=== PATIENT | female | born 1960 | race Caucasian/White ===

== ENCOUNTER 2022-02-16 05:39 | Inpatient (IN) ==
--- NOTE | 2022-02-09 09:24 | Anesthesiology Consultation ---
Date of Service February 09, 2022 Assessment & Plan (1) Encounter for pre-operative examination: Plan - check BMP and EKG STAT am DOS. - cardiology office appt 09/29/21 [facility]: "...2008 patient underwent surgery for diverticulitis. Post surgery, patient developed chest pain, ST elevation was noted on ECG and an echocardiogram was abnormal with WMA abnormalities c/w Takotsubo. Cardiac catheterization confirmed the diagnosis as an angiography revealed normal coronary arteries...treated with ASA, metoprolol and statin...history of abkspixakwacum-Tznwalulv-ulnnwkms...not experiencing symptoms suggestive of a cardiac etiology...possible her sleep apnea, maybe hypoxic state at night coupled with her obesity is some of the driving force behind the edema. Advised for following a low sodium diet..." - sleep apnea, hypoxemia: per PAT anchorman call, pt in process of being Rx PAP and supplemental oxygen and per booking sheet will be staying overnight. Dr. Bruno aware, advised pt bring CPAP to hospital, otherwise will treat with hospital device at reported 4 cm with 1 L supplemental oxygen per [facility] sleep medicine report. Provider order: CPAP SETTINGS: Pressure: 4 cm H2O Smart Flex/C-Flex: 2 Delay/Ramp: 20 minutes Heated Humidifier(E0562) INTERFACE per patient comfort: Small Air Fit N30 OXYGEN SUPPLEMENT: 1 LPM - COVID screening: Per exchange trouble shooter on 02/04/2022: Travel screen negative, no known COVID-19 positive contacts or current COVID-19 related symptoms in past 2 weeks. Pt vaccinated. To surgeon's discretion if preop COVID testing needed. Chart Review Chart Review: Acceptable Risk for Surgery and Patient NOT seen in Pre Admission Testing History Surgery Operation Date: 02/16/22 07:30 Proposed Procedures p Revision of Intrathecal Catheter and Possible Replacement or Revision of Intrathecal Pain Pump - Luis F Alcantar MD, FIPP Height/Weight Height: 5 ft 3 in Weight: 88.451 kg Allergies Allergy/AdvReac Type Severity Reaction Status Date / Time latex Allergy Unknown HIVES Verified 01/19/22 09:56 meperidine [From Demerol] AdvReac Unknown Nausea Verified 02/04/22 12:28 Medications Home Medications Medication Instructions Recorded Confirmed Last Taken calcium polycarbophil 625 mg 1,250 mg PO BID 01/14/20 02/04/22 Unknown tablet (FiberCon) lorazepam 1 mg tablet (Ativan) 1 mg PO DAILY PRN Anxiety 01/14/20 02/04/22 Unknown methylphenidate HCl 20 mg 20 mg PO QAM 01/14/20 02/04/22 Unknown tablet,extended release (Metadate ER) metoprolol succinate 25 mg 25 mg PO QAM 01/14/20 02/04/22 Unknown tablet,extended release 24 hr (Toprol XL) venlafaxine 150 mg 150 mg PO QAM 01/14/20 02/04/22 Unknown capsule,extended release 24 hr (Effexor XR) bupropion HCl 150 mg 24 hr tablet, 150 mg PO QAM 04/28/20 02/04/22 Unknown extended release methylphenidate HCl 5 mg tablet 5 mg PO UD 04/28/20 02/04/22 Unknown naloxone 4 mg/actuation nasal 4 mg intranasal Q2M PRN opioid 10/06/20 02/04/22 Unknown spray (Narcan) overdose #2 ea armodafinil 250 mg tablet (Nuvigil) 250 mg PO QAM 01/19/22 02/04/22 Unknown albuterol sulfate 90 mcg/actuation 90 mcg inhalation QID PRN 02/04/22 02/04/22 Unknown aerosol inhaler Shortness Of Breath Or Wheezing calcium 100 mg capsule 100 mg PO QAM 02/04/22 02/04/22 Unknown Past Medical History Medical History (Updated 02/09/22 @ 09:28 by Leah Jade PA-C) Anxiety Asthma uses occasionally, sometimes depends on weather Chronic radicular lumbar pain Complex sleep apnea syndrome per [facility] records Cytomegaloviral disease hx 1990 Depression Diverticulitis Left knee pain Low O2 saturation happens at night, in process of following up and to be ordered o2 at some point for use at night Lumbar post-laminectomy syndrome Nausea and vomiting after administration of anesthetic agent Presence of intrathecal pump Presence of neurostimulator Takotsubo cardiomyopathy resolved per [facility] cardiology 09/29/21 Past Family History Family History Father Diabetes Colon cancer Past Surgical History Surgical History History of colon resection due to ruptured diverticulitis - 2009 History of lumbar fusion Hx of appendectomy Hx of cardiac cath 2009 after bowel procedure, complications with low heart rate after procedure no stents placed, no blockage found Hx of laminectomy x2 S/P colonoscopy Social History Smoking Status: Former smoker Do You Dip or Chew Tobacco: No Smoking End Date: quit 1994 Hx Alcohol Use: No Hx Substance Use: No substance use type: does not use Testing Laboratory Results 02/05/2022 WBC: 8 H/H: 13/41 PLATELETS: 224 UA: clear, yellow, small leukocyte esterase, moderate blood, no bacteria Echocardiogram Date: 11/03/20 EF 65-69% Normal LV wall motion Grade II diastolic dysfunction Mildly enlarged LA Pulmonary artery systolic pressure 26 mmHg No evidence of pulmonary hypertension No significant valvular pathology
--- NOTE | 2022-02-15 16:10 | History & Physical Report ---
Date of Service February 15, 2022 Assessment & Plan (1) Lumbar post-laminectomy syndrome: (2) Presence of intrathecal pump: (3) Chronic radicular lumbar pain: (4) Anxiety: (5) Depression: Plan 1. Due to suspected intrathecal malfunction due to an inability to aspirate from the catheter access port it has been recommended that the patient undergo exploration and likely revision/replacement of her intrathecal catheter as she continues to have inadequate pain control with her current intrathecal opiate therapy at fairly significant dosing. The side effects and risks of the procedure versus benefits were discussed at length and she verbalized understanding. We will likely be unable to replace her intrathecal pump as she has a current CAROLIN of 42 months. Should catheter abnormality be identified will likely need to reduce her intrathecal dose. Concentrations were adjusted for intrathecal pump refill at the time of her procedure if needed. 2. Patient will follow-up in 1 week and 2 weeks after the procedure in the pain clinic for wound evaluation. These appointments will need to be scheduled. History of Present Illness Chief Complaint: Lumbar postlaminectomy syndrome with inadequate pain control, intrathecal catheter malfunction Primary Care Provider: Serge Frazier Mrs. Tucker is a 61-year-old white female who is well-known to the [facility] pain service with a history of chronic intractable low back pain secondary to lumbar postlaminectomy syndrome which has required implantation of intrathecal pump and catheter delivery system. The patient has been utilizing intrathecal opiate therapy for many years but complaining of inadequate pain control over the past 6-12 months. Patient describes her pain as aching, occasionally sharp with spasming and numbness, with tingling and shooting pains in the lower extremities in nondermatomal patterns. Her predominant pain generator remains right greater than left lumbosacral pain and gluteal region pain extending to the right lateral hip and thigh region. Patient rates her pain a 4/10 at its best and 9/10 at its worst. She reports more good days than bad days with regards to pain control. She reports limited ability to perform ambulatory and ADL activities due to her pain and discomfort. Patient has undergone extensive evaluation of her intrathecal pump with catheter access port study with inability to aspirate so catheter dye study was not completed. CT scan of the thoracolumbar spine was then completed which failed to reveal evidence of a definitive fracture of the catheter. Treatment options have been discussed at length and ultimately decided to explore her catheter for suspected malfunction of the catheter contributing to her poor pain control. Plan of care discussed with Dr. Alcantar. Allergies Allergy/AdvReac Type Severity Reaction Status Date / Time latex Allergy Unknown HIVES Verified 01/19/22 09:56 meperidine [From Demerol] AdvReac Unknown Nausea Verified 02/04/22 12:28 Home Medications Medication Instructions Recorded Confirmed Type calcium polycarbophil 625 mg 1,250 mg PO BID 01/14/20 02/04/22 History tablet (FiberCon) lorazepam 1 mg tablet (Ativan) 1 mg PO DAILY PRN Anxiety 01/14/20 02/04/22 History methylphenidate HCl 20 mg 20 mg PO QAM 01/14/20 02/04/22 History tablet,extended release (Metadate ER) metoprolol succinate 25 mg 25 mg PO QAM 01/14/20 02/04/22 History tablet,extended release 24 hr (Toprol XL) venlafaxine 150 mg 150 mg PO QAM 01/14/20 02/04/22 History capsule,extended release 24 hr (Effexor XR) bupropion HCl 150 mg 24 hr tablet, 150 mg PO QAM 04/28/20 02/04/22 History extended release methylphenidate HCl 5 mg tablet 5 mg PO UD 04/28/20 02/04/22 History naloxone 4 mg/actuation nasal 4 mg intranasal Q2M PRN opioid 10/06/20 02/04/22 Rx spray (Narcan) overdose #2 ea armodafinil 250 mg tablet (Nuvigil) 250 mg PO QAM 01/19/22 02/04/22 History albuterol sulfate 90 mcg/actuation 90 mcg inhalation QID PRN 02/04/22 02/04/22 History aerosol inhaler Shortness Of Breath Or Wheezing calcium 100 mg capsule 100 mg PO QAM 02/04/22 02/04/22 History Past Med/Surg History Medical History (Updated 02/09/22 @ 09:28 by Leah Jade PA-C) Anxiety Asthma uses occasionally, sometimes depends on weather Chronic radicular lumbar pain Complex sleep apnea syndrome per [facility] records Cytomegaloviral disease hx 1990 Depression Diverticulitis Left knee pain Low O2 saturation happens at night, in process of following up and to be ordered o2 at some point for use at night Lumbar post-laminectomy syndrome Nausea and vomiting after administration of anesthetic agent Presence of intrathecal pump Presence of neurostimulator Takotsubo cardiomyopathy resolved per [facility] cardiology 09/29/21 Surgical History History of colon resection due to ruptured diverticulitis - 2008 History of lumbar fusion Hx of appendectomy Hx of cardiac cath 2008 after bowel procedure, complications with low heart rate after procedure no stents placed, no blockage found Hx of laminectomy x2 S/P colonoscopy Family History Father Diabetes Colon cancer Social History Smoking Status: Former smoker Second Hand Exposure: No; Hx Alcohol Use: No Hx Substance Use: No Preferred Language: Thai Communication Ability: Effective Visual Impairment: No Limitations Hearing Ability: Normal Lumber Material Handler Required: No Beliefs That Will Affect Care: None marital status: Current Living Situation: Alone current occupational status: unemployed current occupation: fosters dogs Feels Safe at Home: Yes Assistive Devices: Glasses Review of Systems Review of Systems: Constitutional: Negative for fever, chills, sweats Eyes: Negative for eye pain, photophobia, drainage Ear, nose, mouth, throat: Negative for ear pain, nasal congestion, mouth lesions, change in voice Respiratory: Negative for wheezing, sputum production Cardiovascular: Negative for chest pain, palpitations, calf pain Gastrointestinal: Negative for abdominal pain, belching, bloating Genitourinary: Negative for dysuria, urinary incontinence, urinary urgency Musculoskeletal: Negative for deformities Integumentary: Negative for nail changes, skin yellowing, pruritus Neurological: Negative for abnormal speech, seizure type activity Physical Exam Physical Exam: General: Patient sitting quietly in exam room in no acute distress. Speech and thought process appropriate. Mood and affect appropriate. Cognition intact. Patient overweight and physically deconditioned. Head: Normocephalic and atraumatic. ENT: No evidence of nasal or oral mucosal lesions. Mucous membranes are moist. Eyes: Pupils equal round reactive to light. Neck: Supple without adenopathy and full range of motion. Cardiac: Regular rate and rhythm without murmur. Lungs: Clear to auscultation no wheeze or rhonchi. Abdomen: Soft and nondistended. No organomegaly. Bowel sounds active. Pump present in the left lower quadrant without evidence of edema, erythema or skin breakdown. Incisional site is well approximated. 2 sites of tattooing related to her intrathecal pump. Back/spine: Complete loss of lumbar lordosis with multiple well-healed midline surgical incisions. Patient has generalized tenderness over the entire lumbosacral region which is nonfocal. Lower extremities: SLR negative bilaterally. Strength testing 5/5 and equal. Sensation intact without deficit. Neurologic: Cranial nerves grossly intact. Ambulatory function widened and guarded.
[2022-02-16] MEDS ORDERED: ceFAZolin 2000MG 2,000 MG/15 ML SYR IV SCH (06:00)
[2022-02-16] MEDS ORDERED: LR 15ML/HR IV SCH (06:00)
[2022-02-16] MEDS ORDERED: MORPHINE IT SCH (06:30)
[2022-02-16] MEDS ORDERED: [UNRECOGNIZED DRUG - OTHER] IT SCH (06:30)
[2022-02-16] MEDS ORDERED: BUPIVACAINE IT SCH (06:30)
[2022-02-16] MEDS ORDERED: LIDOCAINE 2% 2 ML VIAL/AMP(20MG/ML) INFIL ONE (07:01)
[2022-02-16] MEDS ORDERED: fentaNYL citrate 100 MCG/2 ML VIAL ONE ×2 (07:01→10:08)
[2022-02-16] MEDS ORDERED: PROPOFOL IV EMULSION 10 MG/ML 20 ML VIAL IV ONE (07:01)
[2022-02-16] MEDS ORDERED: MIDAZOLAM HCL 1 MG/ML 2ML VIAL ONE (07:01)
[2022-02-16] MEDS ORDERED: KETOROLAC 30 MG/ML VIAL IV PRN (07:03)
[2022-02-16] MEDS ORDERED: ONDANSETRON INJ 2 MG/ML 2 ML VIAL IV PRN (07:03)
[2022-02-16] MEDS ORDERED: ATROPINE SULFATE 0.1 MG/ML 10ML SYR IV PRN (07:03)
[2022-02-16] MEDS ORDERED: fentaNYL citrate 100 MCG/2 ML VIAL IV PRN (07:03)
[2022-02-16] MEDS ORDERED: ALBUTEROL 0.083% NEBU SOLN 3 ML VIAL INH PRN (07:03)
--- NOTE | 2022-02-16 07:03 | History & Physical Bridge Note ---
Date of Service February 16, 2022 History & Physical Bridge Note History & Physical Bridge Note Felicitas Tucker is a 61-year-old male/female with a history of chronic pain due to lumbar postlaminectomy syndrome. She has intrathecal medication delivery system implanted for controlling her pain but over the last year has lost the efficacy of the therapy. Further work-up demonstrated malfunctioning catheter. Patient is scheduled today for exploration of intrathecal catheter and pump with possible revision as needed. Patient's past medical history, surgical history, medication and allergy list has been reviewed and no changes noted since his last history and physical examination performed. Review of systems is negative for any cardiac, pulmonary, GI, , endocrine or acute neurological complaints other than what is listed in the HPI section. Physical exam: GENERAL: Patient appears stated age. Speech and cognition is intact. Mood and affect is appropriate. Sensorium is clear. She is in no acute distress. HEAD: Normocephalic; atraumatic. EYES: Pupils are round, equal, and reactive to light. EOM intact. Mucous membranes moist and pink. No oral lesions noted. ENT: No external ear discharge or lesions. No rhinorrhea or epistaxis. No mucosal lesions. NECK: Full ROM. Trachea is midline. No thyromegaly. No cervical lymphadenopathy. Carotids without bruit. CARDIAC: Regular rate and rhythm. No murmur or gallops noted. CHEST: Regular chest respiration and excursion. Lungs are clear to auscultation. ABDOMEN: No organomegaly appreciated. Bowel sounds are normal. Pump LLQ. EXTREMITIES: Full ROM and +5 strength of bilateral lower extremities. Distal sensation and pulses intact bilaterally. BACK: Loss of lumbar lordosis. Decreased ROM. NEURO: Cranial nerves II-XII grossly intact with no focal deficits noted. Deep tendon reflexes in the upper and the lower extremities are symmetrical. Sensation and motor strength testing is unremarkable. SKIN: No lesions, erythema, or rashes noted. ASSESSMENT: 1. Lumbar postlaminectomy syndrome. 2. Malfunctioning intrathecal catheter. RECOMMENDATIONS: Explore, revise and replace intrathecal catheter as needed. History reviewed, examination performed, pertinent laboratory and imaging studies reviewed. No contraindications noted to proceeding with the proposed procedure. Potential risks including infection, bleeding, hematoma, nerve injury, persistent back pain, injury to the spinal cord, dural puncture with pe rsistent cerebrospinal fluid leak, post dural puncture headache which may require additional interventional procedures to treat were discussed with the patient in detail. Alternative treatments were also discussed. Patient's questions were answered and gives informed consent to proceed with the proposed procedure. Consent statement
[2022-02-16] MEDS ORDERED: SCOPOLAMINE 1 MG TDSY TD ONE ×2 (07:04→07:05)
[2022-02-16] MEDS ORDERED: LIDOCAINE 2%/EPINEPHRINE 1:100,000 20ML ONE (07:10)
[2022-02-16 08:00] LABS: BUN Creatinine Ratio 20.5 (10-20); Calcium 9.7 mg/dl (8.5-10.1); Creatinine Clr Calc Pharmacy 75.7 ml/min; Est GFR (African American) 88.8 ml/min; Est GFR (Non-African American) 76.6 ml/min; Potassium 4.2 mmol/L (3.5-5.1)
[2022-02-16] MEDS ORDERED: DEXAMETHASONE SOD INJ 4 MG/ML VIAL ONE (08:26)
[2022-02-16] MEDS ORDERED: ROCURONIUM BROMIDE 10 MG/ML 5 ML VIAL IV ONE (08:26)
[2022-02-16] MEDS ORDERED: ONDANSETRON INJ 2 MG/ML 2 ML VIAL ONE (08:26)
[2022-02-16] MEDS ORDERED: NEOSTIGMINE METHYLSULFATE 1 MG/ML 10ML VIAL ONE (08:48)
[2022-02-16] MEDS ORDERED: GLYCOPYRROLATE 0.2 MG/ML VIAL ONE (08:48)
[2022-02-16] MEDS ORDERED: ePHEDrine sulfate 50 MG/ML SYR ONE (08:48)
[2022-02-16] MEDS ORDERED: SODIUM CHLORIDE 0.9% INJ 10 ML VIAL ONE (09:18)
[2022-02-16] MEDS ORDERED: NALOXONE HCL 0.4 MG/1 ML VIAL/CARP IV PRN (11:19)
[2022-02-16] MEDS ORDERED: NO NARCOTICS OR SEDATIVES SCH (11:30)
--- NOTE | 2022-02-16 11:33 | Operative Report ---
Post Operative Report Pre & Post Diagnosis Operation Date: 02/16/22 07:30 Pre-Op Diagnosis: 1. Lumbar postlaminectomy syndrome. 2. Malfunctioning intrathecal catheter Post-Op Diagnosis: 1. Lumbar postlaminectomy syndrome. 2. Malfunctioning intrathecal catheter I identified the patient and participated in the time-out.: Yes Procedure Operation Date: 02/16/22 07:30 Actual Procedures Exploration of Intrathecal Catheter and Spinal Cord Stimulator leads, Insertion of New Intrathecal Catheter, Reprogram and Refill of Intrathecal Pump - Luis F Alcantar MD, ADY Surgeon Luis F Alcantar MD, ADY Neurological Surgery Teacher Debra Iraheta PA-C Estimated Blood Loss 30 Findings See Below Unable to locate the intrathecal insertion point for the catheter due to artifact from spinal hardware, and multiple spinal cord stimulator leads. Specimens None Drains None Anesthesia Type General Complications none Disposition Disposition: Recovery Room Description of Procedure Exploration of intrathecal catheter and spinal cord similar leads. Insertion of new intrathecal catheter, refill and revision of intrathecal pump. PREOPERATIVE DIAGNOSIS: Nonfunctioning and migrated intrathecal catheter. POSTOPERATIVE DIAGNOSIS: Same. PROCEDURE: 1. Expiration of intrathecal catheter and spinal cord stimulator lead site in the lumbar spine 2. Insertion of new catheter. 3. Postoperative reprogramming of intrathecal drug delivery system pump. INDICATIONS: Malfunctioning intrathecal catheter. COMPLICATIONS: None ANESTHESIA: General. DESCRIPTION OF PROCEDURE: The patient had an existing intrathecal pump with the catheter that had migrated in the epidural space. Patient was not achieving the efficacy from the intrathecal dose of the hydromorphone. Evaluation with imaging catheter dye study revealed disconnection of the catheter and inability to aspirates from the catheter. Therefore, exploration and revision was recommended. Prior to starting, the Patients diagnosis and the procedure were reviewed with the patient in detail. Possible risks and complications including infection, bleeding, damage to surrounding structures and increased pain were d iscussed. Alternative therapies were also reviewed. Patients questions were answered and they agreed to proceed. Informed consent was obtained. Allergies and medication list was reviewed. Biplanar fluoroscopy was used to assist in placement of the needle as well as to evaluate the final needle and catheter positions. The patient was brought to the operating room and general anesthesia was induced by members of the department. Patient was then placed in right lateral decubitus position. Immediately prior to starting the procedure, a ``time out was conducted with the staff where the patient was identified, proposed procedure was verified, consent was reviewed and the proper site for the planned procedure was identified. Preoperative antibiotics for prophylaxis were given through the IV. On examination, no signs of skin breakdown or infection were noted at the injection site. The site was cleansed with DuraPrep followed by Betadine. Sterile drapes were applied in the usual fashion. Incision was made at the previous catheter insertion site. Fluoroscopy was utilized to locate the existing catheter. However, due to artifact from the spinal instrumentation, multiple leads for the existing spinal cord stimulator and poor anatomy, catheter insertion site was unable to located. Incision was made at the approximate insertion site however, and paranoid the catheter could be located. Instead, several centimeters of an insulated exposed spinal cord stimulator was noted. At this point, it was decided to open the pocket in the left lower quadrant the abdomen and disconnected the catheter for the pump. The pump was removed. Remaining medication pump was removed and preserved free saline wash was conducted. Pump was filled with new medication and primed. The sutureless connector disconnected and to free tied using 0 silk were performed over the remaining catheter. Also vascular clip was applied. No fluid was noted to be emergent for the catheter prior to performing this. Next, using biplanar fluoroscopy an 16-gauge Touhy needle was used to gain access to the intrathecal sac at approximate L3/L4 interspace. Free CSF flow was obtained. Intrathecal catheter was threaded uneventfully with the tip positioned at approximate T9 level. Pursestring suture was taken around the catheter insertion site into the dorsal lumbar fascia using 0 silk suture. A nchor device was applied. Free CSF flow from the intrathecal catheter after anchoring of the catheter to the fascia. Wound was then irrigated with Betadine containing normal saline solution. Next, the pump was placed in the pocket after the catheter was brought to the pocket and left lower quadrant site using the tunneling device. Excess catheter was cut and removed and measured. Sutures connecting device were attached to the catheter into the pump. Pocket was irrigated with Betadine containing saline and the pump was placed in the pocket. Hemostasis was achieved. 0 Prolene sutures were used to tack the palm down to the scar tissue in the pocket at the anchor points. Deep layer was closed using 0 V antibiotic-coated Strratfix suture and running 0 Monocryl suture for subcuticular layer. Prineo dressing was applied to the skin. Aquacel dressing was applied to both wounds. Abdominal binder was placed. Pump was then reprogrammed. No complications were noted throughout the procedure. The patient tolerated the procedure and general anesthesia without obvious complications.. Patient was allowed to emerge from anesthesia at the end of the procedure and transferred back to the stretcher. Patient was transported to the recovery room in stable condition. Level of catheter: T9 Catheter trimmed to: 99.6 cm Total catheter volume 0.219 mL Medication placed in pump: Morphine 10 mg/mL concentration and bupivacaine 2.5 mg/mL concentration. Daily dose: 0.5 mg of morphine per day. I attest to the content of the Intraoperative Record and any orders documented therein. Any exceptions are noted below.
--- NOTE | 2022-02-16 11:34 | XRay Report ---
KUB HISTORY: INCORRECT NEEDLE COUNT COMPARISON: Radiographs 10/06/2021. FINDINGS: Fusion hardware of the lower lumbar spine. There are 2 battery pack devices projected over the lower abdomen with partially imaged leads overlying the spine. Study is limited secondary to over lying blanket material. No unexpected opaque foreign bodies identified to suggest a needle device. Mo derate fecal retention. IMPRESSION: No unexpected foreign body identified. ACT 112: Negative or not required by law. The above report was generated using voice recognition software. It may contain grammatical, syntax o r spelling errors. Electronically signed by: Abebe Arriaga M.D. 02/16/2022 11:31 AM
--- NOTE | 2022-02-16 13:07 | Anesthesiology Progress Note ---
Date of Service February 16, 2022 Anesthesia Post Procedure Vital Signs Vital Signs: Temp Pulse Resp BP Pulse Ox O2 Del Method O2 Flow Rate 02/16/22 12:25 37.0 C 91 H 13 108/60 93 Nasal Cannula 3 02/16/22 12:15 94 H 15 113/65 92 Nasal Cannula 3 02/16/22 12:05 98 H 12 126/64 93 Nasal Cannula 3 02/16/22 11:55 100 H 13 126/64 96 Oxymask 4 02/16/22 11:45 100 H 14 118/76 96 Oxymask 4 02/16/22 11:36 36.6 C 111 H 19 117/77 99 Oxymask 8 02/16/22 06:15 36.7 C 88 20 162/77 H 92 Room Air Pain Intensity Lower Back: Pain Intensity: 7 Transfer of Care Handoff Completed per policy Notes Mental Status: alert / awake / arousable and participated in evaluation Patient Amnestic to Procedure: Yes Nausea / Vomiting: adequately controlled Pain: adequately controlled Airway Patency, RR, SpO2: stable & adequate BP & HR: stable & adequate Hydration State: stable & adequate Anesthetic Complications: no major complications apparent and Pt Satisfied with anesthetic care
[2022-02-16] MEDS ORDERED: METHYLPHENIDATE HCL 5 MG TABLET PO SCH (13:16)
[2022-02-16] MEDS ORDERED: ALBUTEROL HFA 8 GM INHALER INH PRN (13:16)
[2022-02-16] MEDS ORDERED: LORazepam 1 MG TAB PO PRN (13:16)
[2022-02-16] MEDS: HYDROCODONE/ACETAMOPHEN 5/325MG TAB PO PRN ×2 (14:42→21:42)
[2022-02-16] MEDS: CHECK SCOPOLAMINE PATCH PLACEMENT SCH ×2 (16:18→23:36)
[2022-02-16] MEDS ORDERED: cefTRIAXone SODIUM 2,000 MG in DEXTROSE 5% 50 ML IV ONE (19:19)
[2022-02-16] MEDS: ONDANSETRON INJ 2 MG/ML 2 ML VIAL IV PRN (19:53)
[2022-02-16] MEDS: CALCIUM POLYCARBOPHIL 625MG TAB PO SCH (20:48)
[2022-02-16] MEDS: DOCUSATE SODIUM 100 MG CAP PO SCH (21:42)
[2022-02-17] MEDS: ONDANSETRON INJ 2 MG/ML 2 ML VIAL IV PRN ×3 (01:15→23:14)
[2022-02-17] MEDS: HYDROCODONE/ACETAMOPHEN 5/325MG TAB PO PRN ×2 (05:17→20:09)
[2022-02-17] MEDS: CALCIUM POLYCARBOPHIL 625MG TAB PO SCH ×2 (07:43→20:10)
[2022-02-17] MEDS: METOPROLOL SUCC 25MG EXT REL TAB PO SCH (07:44)
[2022-02-17] MEDS: DOCUSATE SODIUM 100 MG CAP PO SCH ×2 (07:44→20:11)
[2022-02-17] MEDS: VENLAFAXINE HCL XR 150 MG CAPXR PO SCH (07:44)
[2022-02-17] MEDS: CHECK SCOPOLAMINE PATCH PLACEMENT SCH ×4 (07:49→23:38)
[2022-02-17] MEDS ORDERED: CALCIUM 100 MG PO SCH (09:00)
--- NOTE | 2022-02-17 09:31 | Pain Management Progress Note ---
Date of Service February 17, 2022 Assessment & Plan (1) Lumbar post-laminectomy syndrome: (2) Presence of intrathecal pump: Plan No dosage changes were made to the pump today. Take Hydrocodone 5/325mg if needed for incisional pain. Dressings appear well. She will return to the office next week for a wound check. She is ready to be discharged to home. Admission and Anticipated Discharge Date Admission Date: February 16, 2022 Subjective Mrs. Tucker is status post intrathecal catheter replacement. She states that her chronic low back pain is well controlled currently. She is having incisional pain and taking Hydrocodone with relief. She is drowsy but states that it is her chronic narcolepsy. She denies any fevers, chills, nausea, vomiting. No further complaints. Case discussed with Dr. Ana Paula Bruno Physical Exam Physical Exam: GENERAL: This is a 61 year old female in no acute distress. She is drowsy but arousable and able to have full conversation. HEAD/FACE: Normocephalic and atraumatic. EYES: No drainage or conjunctival injection. ENT: Nose without bleeding or discharge. Oral mucosa moist. RESPIRATORY: Patient with unlabored breathing. No signs of respiratory distress. CHEST/AXILLA: Chest movement symmetrical. No deformities noted. ABDOMEN/GI: Intrathecal pump site in the left lower abdomen is nonmobile and nontender. Aquacel dressing in place. BACK: Moves without difficulty. Incision located in the thoracolumbar region. Aquacel dressing in place. SKIN: [place], warm and dry. No rash noted. MS/EXTREMITY: No swelling, no deformities. Moving extremities appropriately. NEURO: Alert and appears oriented. Speech is fluent. Cranial Nerves are grossly intact. PSYCH: Alert, pleasant, affect is calm
[2022-02-17] MEDS: buPROPion XL 150 MG TABCR PO SCH (09:38)
--- NOTE | 2022-02-17 10:23 | Discharge Summary ---
Date of Service February 17, 2022 Admission HPI Per Admitting Provider Mrs. Tucker is a 61-year-old white female who is well-known to the [facility] pain service with a history of chronic intractable low back pain secondary to lumbar postlaminectomy syndrome which has required implantation of intrathecal pump and catheter delivery system. The patient has been utilizing intrathecal opiate therapy for many years but complaining of inadequate pain control over the past 6-12 months. Patient describes her pain as aching, occasionally sharp with spasming and numbness, with tingling and shooting pains in the lower extremities in nondermatomal patterns. Her predominant pain generator remains right greater than left lumbosacral pain and gluteal region pain extending to the right lateral hip and thigh region. Patient rates her pain a 4/10 at its best and 9/10 at its worst. She reports more good days than bad days with regards to pain control. She reports limited ability to perform ambulatory and ADL activities due to her pain and discomfort. Patient has un dergone extensive evaluation of her intrathecal pump with catheter access port study with inability to aspirate so catheter dye study was not completed. CT scan of the thoracolumbar spine was then completed which failed to reveal evidence of a definitive fracture of the catheter. Treatment options have been discussed at length and ultimately decided to explore her catheter for suspected malfunction of the catheter contributing to her poor pain control. Admission Exam (Per Admitting) Constitutional WD/WN, vitals as above Discharge Data Procedures Performed Operation Date: 02/16/22 07:30 Actual Procedures p Exploration of Intrathecal Catheter and Spinal Cord Stimulator leads, Insertion of New Intrathecal Catheter, Reprogram and Refill of Intrathecal Pump - Luis F Alcantar MD, [facility] Hospital Course (1) Lumbar post-laminectomy syndrome: (2) Presence of intrathecal pump: Plan This is a 61 year old female that is well-known to the [facility] pain service with a history of chronic intractable low back pain secondary to lumbar postlaminectomy syndrome is required implantation of an intrathecal pump and catheter delivery system. She was reporting inadequate pain relief so there was an attempt to aspirate from the intrathecal catheter which was unsuccessful. The intrathecal catheter was found to have malfunctioned so the catheter was tie d off and a new catheter was placed. Postoperatively there is incisional pain but the low back pain is controlled. She is pleased with the current results and ready for discharge.
[2022-02-17] MEDS ORDERED: METOPROLOL TARTRATE 1 MG/ML VIAL IV ONE ×2 (11:02→11:21)
[2022-02-17] MEDS ORDERED: METOPROLOL TARTRATE 1 MG/ML VIAL IV PRN ×2 (11:14→12:01)
[2022-02-17] MEDS ORDERED: ADENOSINE IV SOLN 3 MG/ML 2 ML VIAL IV STA ×2 (11:30)
[2022-02-17] MEDS ORDERED: MAGNESIUM SULFATE / D5W 1 GM/100 ML BAG IV ONE (11:30)
[2022-02-17] MEDS ORDERED: SODIUM CHLORIDE 0.9% 1000ML 1,000 ML IV SCH (11:30)
[2022-02-17] MEDS ORDERED: ADENOSINE IV SOLN 3 MG/ML 2 ML VIAL IV ONE (11:32)
--- NOTE | 2022-02-17 11:33 | Hospitalist Consultation ---
Date of Consultation February 17, 2022 Assessment & Plan (1) SVT (supraventricular tachycardia): Patient has persistent supraventricular tachycardia refractory to bedside maneuvers such as bearing down carotid pressure. Patient on EKG showed rapid rate with inferolateral ST depressions. Patient was given adenosine 6 mg followed by IV push without response and then responded to 12 mg with a pause and then reset to sinus rhythm in the 80s. He was also given magnesium at that time. No time did she have chest pressure or pain but she did have some mild shortness of breath. Initial high-sensitivity troponin is [address] depression depressions had resolved once her rate had returned to normal patient typically sees [facility] cardiology Patient be maintained on her metoprolol succinate however dose may be titrated up if need be (2) Presence of intrathecal pump: Patient underwent exploration of intrathecal catheter and spinal cord stimulator leads insertion of new intrathecal catheter and reprogram refill of intrathecal pump on 02/16/2022 (3) Depression: Continues on venlafaxine (4) Takotsubo cardiomyopathy: Patient follows with [facility] cardiology for previous history of Takotsubo's cardiomyopathy. Patient's most recent echo in 2020 a normal ejection fraction and no wall motion abnormalities Plan Patient be recommended to stay overnight will be absorbed into our services primary and SCDs will be started for DVT prevention. Family was communicate this recommendation History of Present Illness Attending Physician: Luis F Alcantar MD, [facility] History of Present Illness was asked to see the patient for post op tachycardia, rates are 160-170, looks to be svt on monitor was given some iv metoprolol without success, the pt did take her metoprolol prior to admission. upon my arrival she was stable but was in a svt with rates of 70 and mildly tachypneic with no chest pain Allergies Allergy/AdvReac Type Severity Reaction Status Date / Time latex Allergy Unknown HIVES Verified 02/16/22 06:18 meperidine [From Demerol] AdvReac Unknown Nausea Verified 02/16/22 06:18 Home Medications Medication Instructions Recorded Confirmed Type calcium polycarbophil 625 mg 1,250 mg PO BID 01/14/20 02/16/22 History tablet (FiberCon) lorazepam 1 mg tablet (Ativan) 1 mg PO DAILY PRN Anxiety 01/14/20 02/16/22 History methylphenidate HCl 20 mg 20 mg PO QAM 01/14/20 02/16/22 History tablet,extended release (Metadate ER) metoprolol succinate 25 mg 25 mg PO QAM 01/14/20 02/16/22 History tablet,extended release 24 hr (Toprol XL) venlafaxine 150 mg 150 mg PO QAM 01/14/20 02/16/22 History capsule,extended release 24 hr (Effexor XR) bupropion HCl 150 mg 24 hr tablet, 150 mg PO QAM 04/28/20 02/16/22 History extended release methylphenidate HCl 5 mg tablet 5 mg PO UD 04/28/20 02/16/22 History naloxone 4 mg/actuation nasal 4 mg intranasal Q2M PRN opioid 10/06/20 02/16/22 Rx spray (Narcan) overdose #2 ea armodafinil 250 mg tablet (Nuvigil) 250 mg PO QAM 01/19/22 02/16/22 History albuterol sulfate 90 mcg/actuation 90 mcg inhalation QID PRN 02/04/22 02/16/22 History aerosol inhaler Shortness Of Breath Or Wheezing calcium 100 mg capsule 100 mg PO QAM 02/04/22 02/16/22 History hydrocodone 5 mg-acetaminophen 325 1 tab PO Q4H PRN pain #18 tabs 02/17/22 Rx mg tablet Patient History Medical History (Updated 02/17/22 @ 16:08 by Haroon Choi MD) Anxiety Asthma uses occasionally, sometimes depends on weather Chronic radicular lumbar pain Complex sleep apnea syndrome per [facility] records Cytomegaloviral disease hx 1990 Depression Diverticulitis Left knee pain Low O2 saturation happens at night, in process of following up and to be ordered o2 at some point for use at night Lumbar post-laminectomy syndrome Nausea and vomiting after administration of anesthetic agent Presence of intrathecal pump Presence of neurostimulator Takotsubo cardiomyopathy resolved per [facility] cardiology 09/29/21 Surgical History History of colon resection due to ruptured diverticulitis - 2008 History of lumbar fusion Hx of appendectomy Hx of cardiac cath 2008 after bowel procedure, complications with low heart rate after procedure no stents placed, no blockage found Hx of laminectomy x2 S/P colonoscopy Family History Father Diabetes Colon cancer Social History Smoking Status: Never smoker Smoking End Date: quit 1994; Second Hand Exposure: No; Do You Dip or Chew Tobacco: No; Tobacco Cessation Education Requested by Patient: No Hx Alcohol Use: No Hx Substance Use: No Preferred Language: Amharic Communication Ability: Effective Visual Impairment: No Limitations Hearing Ability: Normal Business Analytics Specialist Required: No Beliefs That Will Affect Care: None marital status: Current Living Situation: Alone current occupational status: unemployed current occupation: fosters dogs Other Information That Helps Us Care for You: No Feels Safe at Home: Yes Safety Concerns: Feels Safe At This Time Assistive Devices: None Review of Systems Review of Systems: Mild distress and fatigue no headache, no visual changes no speech or swallowing issues no chest pain, pressure or sensation of palpitations shortness of breath, cough or wheezes no abdominal pain, nausea or vomiting, diarrhea or constipation no dysuria, hematuria or frequency no focal joint pain or swelling no back pain, CVA tenderness or radicular pain no bruising, bleeding or rashes no focal signs of weakness or numbness or altered sensation no complaints of anxiety or depression.. Physical Exam Physical Exam: The patient appeared well nourished and normally developed. Vital signs as documented. Head exam is normocephalic atraumatic Neck is without JVD, thyromegaly, or carotid bruits. Lungs are clear to auscultation, no focal loss of breath sounds Cardiac exam, Rhythm is tachycardic but regular.. No murmurs, rubs or gallops. EKG shows narrow complex tachycardia with inferolateral ST depression Abdominal exam reveals normal bowel sounds, soft non tender, no masses Extremities are nonedematous and both pedal pulses are present Neurologic exam is alert and oriented, no focal loss of strength or sensation Skin is without bruises or rashes Psychologically is without concerns for anxiety or depression.. Results & Data Results & Data ([facility]) Vital Signs (Past 12 Hours) Vital Signs Temp Pulse Pulse Resp BP BP BP 02/17/22 11:13 170 H 122/90 02/17/22 07:26 98.2 F 89 20 149/72 H 02/17/22 03:32 99.0 F 93 H 18 146/74 H 02/17/22 00:07 Pulse Ox O2 Del Method O2 Flow Rate 02/17/22 11:13 02/17/22 07:26 97 Nasal Cannula 2 02/17/22 03:32 93 Nasal Cannula 2.0 02/17/22 00:07 Nasal Cannula 3 PG Care Time/CCT Total # of Minutes Spent Total Time Spent with Patient: Total time spent is greater than 50% in coordination of care (as documented) at patient's floor/unit and/or counseling patient: Coding Level of Care Code 72352 Inpt Consult Level 5 Diagnoses SVT (supraventricular tachycardia) I47.1 Presence of intrathecal pump Z97.8 Depression F32.9 Takotsubo cardiomyopathy I51.81
[2022-02-17] MEDS ORDERED: LORazepam 0.5 MG TAB PO PRN (12:06)
--- NOTE | 2022-02-17 12:30 | Electrocardiogram Report ---
Test Reason : Blood Pressure : / mmHG Vent. Rate : 169 BPM Atrial Rate : 133 BPM P-R Int : 000 ms QRS Dur : 096 ms QT Int : 280 ms P-R-T Axes : 000 -19 178 degrees QTc Int : 469 ms Supraventricular tachycardia Marked ST abnormality, possible inferolateral subendocardial injury Abnormal ECG No previous ECGs available Confirmed by Sae Chan ([id number]) on 02/17/2022 12:29:56 PM Referred By: Luis F Alcantar Confirmed By:Sae Chan
--- NOTE | 2022-02-17 12:33 | Electrocardiogram Report ---
Test Reason : Blood Pressure : / mmHG Vent. Rate : 085 BPM Atrial Rate : 085 BPM P-R Int : 160 ms QRS Dur : 094 ms QT Int : 364 ms P-R-T Axes : 068 -22 046 degrees QTc Int : 433 ms Normal sinus rhythm Normal ECG When compared with ECG of 17-FEB-2022 10:53, (unconfirmed) Vent. rate has decreased BY [address] no longer depressed in Inferior leads ST no longer depressed in Anterolateral leads Confirmed by Sae Chan ([id number]) on 02/17/2022 12:32:41 PM Referred By: Luis F Alcantar Confirmed By:Sae Chan
[2022-02-17 15:33] LABS: BUN Creatinine Ratio 15.7 (10-20); Creatinine Clr Calc Pharmacy 74.9 ml/min; Est GFR (African American) 88.8 ml/min; Est GFR (Non-African American) 76.6 ml/min; Magnesium 2.2 mg/dl (1.7-2.4); Potassium 3.7 mmol/L (3.5-5.1)
[2022-02-17 15:39] LABS: Troponin I High Sensitivity 50.9 pg/ml (0-14)
--- NOTE | 2022-02-17 22:44 | Communication Note ---
Date of Service: February 17, 2022 Informed by patient's nurse that she was having chest pain. At the bedside, patient reported feeling a deep pressure in the inferior substernal area/top of the epigatrum. She also reports feeling mildly nauseous and with "jitters" in her arms and legs. Endorses mild sensation of nausea. Denies any SOB. Denies this ever happening before. No radiation elsewhere. Notes "it could just be my nerves." HR 173/80, HR 68, RR 20, SpO2 94%. General - tired appearing 61yoF who appears restless and mildly anxious on my arrival. Non-toxic. Cardiac - NRRR, +S1/2 w/o m/r/g. Resp - CTAB. Abd - NABS. Nondistended, +TTP in the epigastrum that she says reproduces the pain. No rebound/guarding ECG - No conduction or repolarization abnormalities. Epigastric pain/Chest pain - Primarily suspect GI etiology - dyspepsia - compounded by feelings of panic that she endorses. Ativan given, already was ordered PRN. Will give IV famotidine, Zofran, alongside GI cocktail. IF still no relief, will draw troponin and trial alternative analgesics - nitro, morphine, etc. Plan communicated with RN.
[2022-02-17] MEDS ORDERED: FAMOTIDINE 20 MG in SYRINGE 3 ML IV ONE (23:15)
[2022-02-17] MEDS ORDERED: ALUMINUM/MAGNESIUM SUSP 18 ML, LIDOCAINE VISCOUS 2% SOLN 6 ML, BARCODE IDENTIFIER 1 EACH PO ONE (23:15)
[2022-02-18] MEDS ORDERED: PROMETHAZINE HCL 12.5 MG in SODIUM CHLORIDE 0.9% 50 ML IV ONE (01:00)
[2022-02-18] MEDS ORDERED: MELATONIN 3 MG TAB PO PRN (01:28)
[2022-02-18 07:19] LABS: BUN Creatinine Ratio 22.8 (10-20); Calcium 8.9 mg/dl (8.5-10.1); Creatinine Clr Calc Pharmacy 80.1 ml/min; Est GFR (African American) 94.3 ml/min; Est GFR (Non-African American) 81.4 ml/min; Potassium 3.4 mmol/L (3.5-5.1)
--- NOTE | 2022-02-18 08:03 | Electrocardiogram Report ---
Test Reason : Blood Pressure : / mmHG Vent. Rate : 065 BPM Atrial Rate : 065 BPM P-R Int : 152 ms QRS Dur : 100 ms QT Int : 394 ms P-R-T Axes : 073 -11 062 degrees QTc Int : 409 ms Normal sinus rhythm Normal ECG When compared with ECG of 17-FEB-2022 11:47, No significant change was found Confirmed by Luke Boyd ([id number]) on 02/18/2022 8:02:58 AM Referred By: Luis F Alcantar Confirmed By:Luke Boyd
--- NOTE | 2022-02-18 08:48 | Pain Management Progress Note ---
Date of Service February 18, 2022 Assessment & Plan (1) SVT (supraventricular tachycardia): (2) Takotsubo cardiomyopathy: (3) Presence of intrathecal pump: (4) Lumbar post-laminectomy syndrome: Plan 1. In case the hallucinations are from overdose, I have placed the intrathecal pump dosage to minimal rate. She will now be receiving morphine 0.063 mg/day and bupivacaine 0.0158 mg/day. 2. She will have Hydrocodone 5/325 mg to take for pain. 3. I will order Dilaudid 1 mg x 4 hours if needed for breakthrough pain. 4. Imodium PRN diarrhea. 5. Will defer further altered mental status to hospitalist team. 6. Will follow up with patient tomorrow. Admission and Anticipated Discharge Date Admission Date: February 16, 2022 Subjective Felicitas is day 3 post intrathecal catheter replacement. She states that she is no longer experiencing her chronic low back pain. There is a small amount of thoracolumbar incisional pain which she did take 1 Hydrocodone pills last night. Per nursing she has been hallucinating throughout the night but when spoken to can have an appropriate conversation. She states that her arms are jittery. Last night she was complaining of nausea and substernal pain and improved with Ativan and GI cocktail. Physical Exam Physical Exam: GENERAL: This is a 61 year old female. She is able to answer questions appropriately and when not spoken to she is hallucinating with her arms swaying in the air. HEAD/FACE: Normocephalic and atraumatic. EYES: No drainage or conjunctival injection. ENT: Nose without bleeding or discharge. Oral mucosa dry. RESPIRATORY: Patient with unlabored breathing. No signs of respiratory distress. CHEST/AXILLA: Chest movement symmetrical. No deformities noted. ABDOMEN/GI: Intrathecal pump site in the left lower abdomen is nonmobile and nontender. Aquacel dressing in place. BACK: Moves without difficulty. Incision located in the thoracolumbar region. Aquacel dressing in place. SKIN: [place], warm and dry. No rash noted. MS/EXTREMITY: No swelling, no deformities. Moving extremities appropriately. NEURO: Alert and oriented. Speech is fluent. Cranial Nerves are grossly intact. PSYCH: She is drowsy and intermittently hallucinating. Constitutional: WD/WN, vitals as above
[2022-02-18] MEDS: CALCIUM POLYCARBOPHIL 625MG TAB PO SCH ×2 (08:53→23:34)
[2022-02-18] MEDS: METOPROLOL SUCC 25MG EXT REL TAB PO SCH (08:53)
[2022-02-18] MEDS: buPROPion XL 150 MG TABCR PO SCH (08:53)
[2022-02-18] MEDS: DOCUSATE SODIUM 100 MG CAP PO SCH ×2 (08:53→23:34)
[2022-02-18] MEDS: VENLAFAXINE HCL XR 150 MG CAPXR PO SCH (08:53)
[2022-02-18] MEDS: CHECK SCOPOLAMINE PATCH PLACEMENT SCH ×4 (08:56→23:40)
[2022-02-18] MEDS ORDERED: LOPERAMIDE HCL 2 MG CAP PO PRN (09:26)
[2022-02-18] MEDS ORDERED: HYDROmorphone INJ 1 MG/ML SYRINGE IV PRN (09:35)
[2022-02-18] MEDS ORDERED: HYDROmorphone INJ 0.5 MG/0.5 ML SYR ONE ×3 (11:09→11:31)
[2022-02-18] MEDS ORDERED: HYDROmorphone INJ 0.5 MG/0.5 ML SYR IV STA ×2 (11:18→11:46)
[2022-02-18] MEDS ORDERED: HYDROmorphone INJ 0.5 MG/0.5 ML SYR IV ONE (11:19)
[2022-02-18] MEDS ORDERED: LORazepam 0.5 MG in SYRINGE 0.25 ML IV STA (11:20)
[2022-02-18] MEDS ORDERED: diazePAM 2 MG TABLET ONE (11:23)
[2022-02-18] MEDS ORDERED: LORazepam 1 MG in SYRINGE 0.5 ML IV PRN (13:03)
[2022-02-18] MEDS ORDERED: MULTI-VITAMIN INFUSION 10 ML, THIAMINE HCL 100 MG, FOLIC ACID 1 MG in SODIUM CHLORIDE 0... IV ONE (13:30)
--- NOTE | 2022-02-18 13:42 | CT Scan Report ---
CT OF THE HEAD WITHOUT CONTRAST CLINICAL HISTORY: Altered mental status. Evaluate for cva once stable. COMPARISON STUDY: No previous studies for comparison. CT DOSE: 1382.10 mGy.cm TECHNIQUE: Helical axial images of the head were obtained without IV contrast. Automated exposure con trol was utilized for the study. A dose lowering technique was utilized adhering to the principles o f ALARA. FINDINGS: No acute intracranial hemorrhage, midline shift or mass effect is present. The ventricular system is unremarkable. Choroid plexus cysts are incidentally noted. The basal cisterns are patent. N o extra-axial collections are present. There are no findings to suggest acute dural sinus thrombosis or acute territorial infarct. No significant calvarial abnormalities are present. Visualized portions of the sinuses and mastoid air cells are clear. IMPRESSION: No acute intracranial findings. ACT 112: Negative or not required by law. Electronically signed by: Blayne David M.D. 02/18/2022 1:41 PM
[2022-02-18] MEDS: THIAMINE HCL 100 MG in SYRINGE 9 ML IV SCH (13:58)
[2022-02-18 14:21] LABS: Appearance Urine Clear (Clear); Bacteria Urine Automated Negative (Negative); Bilirubin Urine Negative (Negative); Blood Urine 2+ (Negative); Color Urine Yellow; Epithelial Cell Urine Auto 20-30 /lpf (0-5); Glucose Urine UA Negative (Negative); Ketones Urine 2+ (Negative); Leukocyte Esterase Urine Negative (Negative); Nitrite Urine Negative (Negative); Protein Urine 2+ (Negative); Specific Gravity Urine 1.017 (1.000-1.030); Urobilinogen Urine Negative (Negative); pH Urine 6.5 (4.5-7.5)
[2022-02-18] MEDS ORDERED: Ativan PO Alcohol Withdrawal--Active Protocol PO PRN (14:34)
[2022-02-18] MEDS ORDERED: LORazepam 1 MG TAB PO PRN ×3 (14:34)
[2022-02-18] MEDS: HYDROmorphone INJ 1 MG/ML SYRINGE IV PRN ×2 (16:11→18:48)
[2022-02-18] MEDS ORDERED: GABAPENTIN 800MG ALCOHOL WITHDRAWAL LOAD PO STA (17:43)
[2022-02-18] MEDS ORDERED: hydrALAZINE HCL 20 MG/ML VIAL IV PRN (17:49)
--- NOTE | 2022-02-18 17:55 | Hospitalist Progress Note ---
Date of Service February 18, 2022 Assessment & Plan (1) Delirium: Plan: Critical care time was spent the patient's bedside proximately 75 minutes were spent at the bedside. Patient had a code charles called. I was present when the nurses administer medication and watch her on the monitor checked her 1 transition to new unit Etiology of her delirium at this point time is unclear could be opiate withdrawal. Family denies the patient having alcohol use however she was given thiamine and banana bag and is on JACQUELIN S scale started on gabapentin. If this were to be seizure-like episode it would be an atypical seizures the patient was alert during the episode without postictal phase she did respond mostly to parenteral opiates suggesting this could be opiate withdrawal. 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 This is resolved and has not recurred Initial high-sensitivity troponin is 50 was in the 60s on recheck but no uptrend after discussion with [facility] cardiology will continue to support beta- blockade use and titrate as can be able Patient be maintained on her metoprolol succinate however dose may be titrated up if need be (3) Presence of intrathecal pump: Plan: Patient underwent exploration of intrathecal catheter and spinal cord stimulator leads insertion of new intrathecal catheter and reprogram refill of intrathecal pump on 02/16/2022, Given the difficulties of finding her old intrathecal catheter Was placed in her pump dosing was adjusted. Patient denies any additional opiate use and so does her family however this could be opiate withdrawal we will augment her with intravenous opiates over the 24 hours and adjust the pump as able. Look for secondary causes of delirium (4) Depression: Plan: Continues on venlafaxine (5) Takotsubo cardiomyopathy: Plan: Patient follows with [facility] cardiology for previous history of Takotsubo's cardiomyopathy. Patient's most recent echo in 2020 a normal ejection fraction and no wall motion abnormalities Admission and Anticipated Discharge Date Admission Date: February 18, 2022 Subjective Code charles was called this morning I immediately rushed to the room patient was in distress she was tachycardic and hypertensive she was conscious she was not hypoxic she was in a contracted state of her arms and legs with a shaking motion she was grunting with respirations she was able to answer questions. This did not appear to be overtly seizure as her consciousness was preserved concern for possible withdrawal of either opiates or other substances patient received 3 doses of IV Dilaudid 0.5 mg with improvement of the symptoms she also received 2.5 mg of IV diazepam she was moved to a more visible room with end-tidal CO2 and oximetry she was delirious at times with visual and auditory hallucinations of people in the room that were not there. I did call her family they deny that she drinks alcohol or takes other medications on her medication list Review of Systems Review of Systems: Review of systems is jaded by the fact that the patient's is altered sensorium Subsequently she was in distress she was tachypneic without hypoxemia She was rhythmically shaking with contracted arms and legs her feet were both lifted off the bed There is no postictal phase and she is able to converse during. At some points she did have leftward gaze Physical Exam Physical Exam: The patient appeared to have stable vital signs but clinically was not in a stable condition Vital signs as documented. Lungs are clear to auscultation and appear labored during the event Cardiac exam, Rhythm is sinus mechanism with tachycardia.. No murmurs, rubs or gallops. Abdominal exam reveals normal bowel sounds, soft non tender, no masses Extremities are nonedematous and both pedal pulses are normal. Neurologic exam is alert and oriented, he is confused and delirious no focal loss of strength or sensation Skin is without bruises or rashes Results & Data Results & Data ([facility]) Vital Signs (Past 12 Hours) Vital Signs Temp Pulse Pulse Resp BP Pulse Ox Pulse Ox 02/18/22 15:37 98.8 F 86 20 151/107 H 97 02/18/22 07:00 79 02/18/22 13:00 93 02/18/22 12:44 82 24 171/84 H 93 02/18/22 11:00 140 H 28 H 95 02/18/22 08:41 98.6 F 100 H 18 168/89 H 98 O2 Del Method O2 Del Method O2 Flow Rate O2 Flow Rate 02/18/22 15:37 Nasal Cannula 4.0 02/18/22 07:00 02/18/22 13:00 Nasal Cannula 4 02/18/22 12:44 Nasal Cannula 4 02/18/22 11:00 Oxymask 4 02/18/22 08:41 PG Care Time/CCT Total # of Minutes Spent Total Time Spent with Patient: Total time spent is greater than 50% in coordination of care (as documented) at patient's floor/unit and/or counseling patient: Coding Level of Care Code 70812 Subseq Hosp Care Lvl 3 Diagnoses Delirium R41.0 SVT (supraventricular tachycardia) I47.1 Presence of intrathecal pump Z97.8 Depression F32.9 Takotsubo cardiomyopathy I51.81 Time Spent (min) 75 Comment This should be critical care time not Level 3
[2022-02-18] MEDS ORDERED: GABAPENTIN 400 MG CAP PO ONE (18:00)
[2022-02-18] MEDS: LORazepam 1 MG in SYRINGE 0.5 ML IV PRN (23:34)
[2022-02-19] MEDS: GABAPENTIN 400 MG CAP PO SCH ×2 (02:29→07:39)
[2022-02-19] MEDS: LORazepam 1 MG in SYRINGE 0.5 ML IV PRN ×2 (03:14→07:40)
[2022-02-19] MEDS ORDERED: HYDROmorphone INJ 0.5 MG/0.5 ML SYR IV STA (04:06)
[2022-02-19] MEDS: HYDROmorphone INJ 1 MG/ML SYRINGE IV PRN (04:09)
[2022-02-19] MEDS ORDERED: LORazepam 0.5 MG in SYRINGE 0.25 ML IV STA (04:21)
[2022-02-19] MEDS ORDERED: LORazepam 0.5 MG in SYRINGE 0.25 ML IV ONE (04:30)
[2022-02-19] MEDS ORDERED: VANCOMYCIN CONSULT ACTIVE PRN (04:48)
[2022-02-19 04:52] LABS: Base Excess VBG 2.4 mEq/L; HCO3 VBG 25 mmol/L; Oxygen Saturation VBG 89.3 %; PCO2 VBG 32 mmHg (38-50); PO2 VBG 53 mmHg
[2022-02-19 04:53] LABS: Hematocrit (blood only) 48.7 % (34.1-44.9); Hemoglobin 16.7 g/dl (12.0-16.0); Mean Corpuscular Hemoglobin 29.8 pg (25.0-34.0); Mean Corpuscular Hgb Conc 34.3 g/dL (32.0-36.0); Mean Corpuscular Volume 86.8 fL (80.0-100.0); Mean Platelet Volume 9.9 fL (9.4-12.3); Platelet Count 332 K/uL (130-400); RDW Coefficient of Variation 12.8 % (11.5-14.5); RDW Standard Deviation 40.1 fL (36.4-46.3); Red Blood Count 5.61 M/uL (3.93-5.22); White Blood Count 24.53 K/ul (4.8-10.8)
[2022-02-19] MEDS ORDERED: cefTRIAXone SODIUM 2,000 MG in DEXTROSE 5% 50 ML IV SCH (05:00)
[2022-02-19] MEDS ORDERED: ACETAMINOPHEN 1,000 MG/100 ML VIAL IV PRN (05:08)
[2022-02-19 05:12] LABS: BUN Creatinine Ratio 29.6 (10-20); C Reactive Protein 5.4 mg/dl (0-0.5); Calcium 8.9 mg/dl (8.5-10.1); Creatinine Clr Calc Pharmacy 78.2 ml/min; Est GFR (African American) 91.5 ml/min; Est GFR (Non-African American) 78.9 ml/min; Potassium 3.3 mmol/L (3.5-5.1)
--- NOTE | 2022-02-19 05:17 | Communication Note ---
Date of Service: February 19, 2022 Notified by patient's nurse early this morning that patient was continuously scoring high on AWSS despite PRN Ativan, appeared to be worsening clinically, and was developing HTN/tachycardia/fever. At the bedside, patient appeared diaphoretic but well perfused. She was tachypneic and breathing shallowly, but protecting her airway. She was not res ponding to commands or verbal stimuli, but did respond to painful stimuli. Vitals on my arrival 190/80, heart rate 120, respiratory rate 30-40, temperature ~38. Generaldiaphoretic but well perfused ill-appearing woman in mild distress with subtle tremors in her hands. HEENTEvidence of tongue and lip biting with dried blood appreciated. Her pupils appeared mildly dilated but were equal and reactive to light. No nystagmus. Cardiactachycardic with regular rhythm. S1 and S2 are present without murmurs rubs or gallops. Respiratoryclear to auscultation bilaterally without crackles or wheezes. Abdomensoft, nondistended, mildly tender to palpation in the epigastrium. Skinno apparent rashes over pump site, including over the back - dressing is c/d/i, no e/o incontinence, though Beltrán is in place. ---- Daytime notes were reviewed. Noted that patient has intrathecal pump in place that was recently changed. Earlier yesterday morning, she was reported to be altered and primary team had concerns for possible alcohol versus opiate withdrawal. She was given 0.5 mg of both Ativan and Dilaudid, which she responded to well. General discomfort appeared to go down, and she was able to open her eyes on command shortly thereafter and follow basic commands. Noted that patient had denied alcohol consumption, as did family. Spoke with on- call physician for pain management, Dr. Alcantar, to review the case given unclear clinical picture. Clinical appearance seem to be more consistent with significant alcohol or BZD withdrawal/DTs rather than opiate withdrawal, however possible both are intermixed. Sympathetic overdrive to this extent is more c/w EtOH/BZD withdrawal rather than opioids. Cannot r/o infectious etiology given her intrathecal pump. Could continue trialing Ativan and/or consider low-dose Dilaudid gtt (1-1.5mg/hr), so long as respiratory status is monitored. ---- Encephalopathy - Sympathetic overdrive to this degree would seem more consistent with EtOH/BZD withdrawal rather than opioid, though could be a mix. Though I believe less likely, cannot definitively r/o infectious etiology given temperature, tachycardia, ill appearance, presence of intrathecal pump, and preliminary labs demonstrating appreciable leukocytosis at ~25. Low suspicion for serotonin syndrome. While no overt tonic-clonic seizure activity was observed, her lip and tongue biting are concerning for such. Await remainder of labs. Will empirically initiate bacterial meningitis coverage with CFTX/vancomycin + ampicillin gien age >60 and unclear EtOH history given presentation. Will continue giving Ativan and Dilaudid PRN as tolerated with close monitoring of respiratory status. Could consider Librium addition +/- low-dose Dilaudid gtt (1-1.5mg/hr) should symptoms continue / picture remain unclear. Could also consider neurology consult with EEG. Resident Activity Tracking Resident Involvement: Resident Care Provided Care Provided: Adult Hospital Medicine
[2022-02-19 05:41] LABS: ALC (manual) 1.23 K/uL (1.2-3.4); ANC (manual) 22.32 K/uL (1.4-6.5); Lymphocytes # (manual) 1.23 K/uL (1.2-3.4); Lymphocytes % (manual) 5 %; Monocytes # (manual) 0.98 K/uL (0.24-0.82); Monocytes % (manual) 4 %; Neutrophils # (manual) 22.32 K/uL (1.4-6.5); Neutrophils % (manual) 91 %
[2022-02-19] MEDS ORDERED: VANCOMYCIN HCL 2,000 MG in SODIUM CHLORIDE 0.9% 500 ML IV ONE (06:00)
[2022-02-19] MEDS ORDERED: ASPIRIN 300 MG SUPP PR ONE (06:39)
--- NOTE | 2022-02-19 07:19 | XRay Report ---
XR chest 1V portable CLINICAL HISTORY: Respiratory distress. COMPARISON STUDY: No previous studies for comparison. FINDINGS: Intracanalicular devices are partially imaged. Lung volumes are mildly diminished. There is no consolidation to suggest pneumonia. No evidence for pulmonary edema. No pneumothorax or pleural e ffusion is present. Left-sided Bochdalek hernia is better depicted on the thoracic spine CT of October 302019. Mild cardiomegaly is noted. IMPRESSION: No acute cardiopulmonary findings. ACT 112: Negative or not required by law. Electronically signed by: Blayne David M.D. 02/19/2022 7:17 AM
[2022-02-19] MEDS: AMPICILLIN 2,000 MG in SODIUM CHLOR 0.9% AD-VAN 100 ML IV SCH ×5 (07:38→21:14)
[2022-02-19] MEDS: POTASSIUM CHLORIDE / WTR 10 MEQ/100 ML PLCT IV SCH ×3 (07:49→09:58)
[2022-02-19] MEDS ORDERED: HYDROmorphone INJ 1 MG/ML SYRINGE IV PRN (08:23)
[2022-02-19] MEDS ORDERED: HYDROmorphone PCA 30 MG/30 ML IV PRN (08:23)
[2022-02-19] MEDS ORDERED: NALOXONE HCL 0.4 MG/1 ML VIAL/CARP IV PRN (08:23)
[2022-02-19] MEDS ORDERED: METOPROLOL SUCC 50MG EXT REL TAB PO SCH (09:00)
[2022-02-19] MEDS: THIAMINE HCL 100 MG in SYRINGE 9 ML IV SCH (09:09)
--- NOTE | 2022-02-19 09:40 | Pain Management Progress Note ---
Date of Service February 19, 2022 Assessment & Plan (1) Delirium: (2) Lumbar post-laminectomy syndrome: (3) Presence of intrathecal pump: Plan 1. As there has been short improvement with previous trials of IV Dilaudid and Ativan, opioid withdrawal could be likely contributing factor. She has been initiated on Dilaudid AUDITING CONTROL CLERK at continuous 1mg/hr and PRN. 2. No changes were made to intrathecal pump at today's visit. 3. Defer further delirium care to hospitalist team. Please contact Dr. Alcantar for further questions and concerns for pain management care. Admission and Anticipated Discharge Date Admission Date: February 18, 2022 Subjective Felicitas's state has worsened since yesterday. She is no longer awake or alert. She is tremoring in face and arms. Unable to respond to any questions. Last night she developed fever, HTN, tachycardia, tachypnea. Patient seen with Dr. Alcantar Physical Exam Physical Exam: GENERAL: This is a 61 year old female. Tremors of the face and arms. Not responding to commands. Will not respond to verbal stimuli, responds to painful. HEAD/FACE: Normocephalic and atraumatic. Dried blood in mouth. RESPIRATORY: Patient with unlabored breathing. No signs of respiratory distress. CHEST/AXILLA: Chest movement symmetrical. No deformities noted. SKIN: [place], warm and dry. No rash noted. MS/EXTREMITY: No swelling, no deformities. Tremors of arms > legs. NEURO: Delirious. Not responsive.
[2022-02-19] MEDS: VENLAFAXINE HCL XR 150 MG CAPXR PO SCH (10:20)
[2022-02-19] MEDS: buPROPion XL 150 MG TABCR PO SCH (10:20)
[2022-02-19] MEDS: SODIUM CHLORIDE 0.9% 1000ML 1,000 ML IV SCH ×2 (10:22→23:09)
--- NOTE | 2022-02-19 10:26 | Pharmacy Report ---
Pharmacy Vanc AUC Short Note - Date of Service February 19, 2022 - Assessment & Plan Assessment * 61 year old F receiving VANCOMYCIN + CEFEPIME + AMPICILLIN + ACYCLOVIR for treatment of meningitis/encephalitis in patient with recent change of intrathecal pump. Question of infectious process +/- withdrawal syndrome * Pertinent microbiologic data includes: BLCXs pending, UCx pending, UA without pyuria * Day # 1 of antimicrobial therapy * Pharmacy to dose vancomycin Plan Vancomycin * AUC/MORENO is the preferred PK/PD target for vancomycin * AUC guided dosing is effective and associated with decreased risk of nephrotoxicity compared to traditional trough targets * Loading dose 2000mg x 1 * Maint dose 1000mg IV Q 12 hrs is predicted to achieve target AUC/MORENO of 400- 600 mg/L.hr and may be associated with a 12 % risk of nephrotoxicity * Trough level ordered for: 02/21/22 (with 4th maint dose) Pharmacy will continue to follow and will adjust dose/frequency as necessary. Thank you.
--- NOTE | 2022-02-19 10:29 | Cardiology Consultation ---
Date of Consultation February 19, 2022 Assessment & Plan (1) Elevated troponin: (2) SVT (supraventricular tachycardia): (3) Delirium: (4) Presence of intrathecal pump: (5) Takotsubo cardiomyopathy: Plan Elevated high-sensitivity troponin appearing to be multifactorial in etiology, demand ischemia secondary to acute/critical illness, possible infection/sepsis, tachycardia/SVT, ? recurrent stress induced cardiomyopathy. RECOMMENDATIONS/PLAN: Supplement potassium, maintaining normokalemia and normomagnesemia. Increase metoprolol succinate to 50 mg twice a day for heart rate and blood pressure control. Utilize IV metoprolol if unable to take PO. Discontinue Methylphenidate (Ritalin) Limited resting echocardiography to assess LV function Supervising Physician Co-Signing Physician Notes Patient seen examined the bedside. Somewhat confused and agitated. Dilaudid SPOT CHECKER pump ordered by pain management. Patient denies chest pain or shortness of breath. ECG without ischemic changes. Due to elevated troponin, cardiology consultation requested. Isolated episode of PSVT treated with adenosine as noted above. No recurrence on telemetry. PE: Gen: Agitated. Heart: Regular rhythm, borderline tachycardic. Lungs: Clear bilateral examined anteriorly with poor cooperation. Extremities: No edema. Neuro: Moves all extremities. No facial asymmetry or focal weakness. Poor cooperation. A/P: Agree with above PA-C history, physical exam, assessment and plan. Elevated troponin noted without ischemic ECG changes or report of anginal symptoms. I suspect multifactorial in the setting of withdrawal, acute/critical illness, ongoing tachycardia, isolated episode of PSVT, and possible stress- induced cardiomyopathy. Currently patient is not a candidate for anticoagulation due to recent spinal procedure. Titrate beta-jimena as noted above. Transition to IV Lopressor 5 mg every 4 hours if patient unable to take oral medication. Monitor telemetry. Replace electrolytes as indicated. History of Present Illness Reason for Consultation: Elevated troponin Requesting Physician: Steph Attending Physician: Steph History of Present Illness Ms. Felicitas Tucker is a 61-year-old female who was admitted to [facility] on February 15, 2022 due to suspected malfunction of her intrathecal pump for lumbar postlaminectomy syndrome, chronic radicular lumbar pain. On February 16, 2022 she underwent exploration of the intrathecal catheter and spinal cord stimulator leads and insertion of a new intrathecal catheter by Dr. Luis F Alcantar. Postoperatively she developed symptomatic (dyspnea) supraventricular tachycardia with EKG revealing supraventricular tachycardia with a ventricular rate of 169 bpm with marked inferolateral ST abnormality. SVT did not respond to vagal maneuvers or IV metoprolol leading to administration of 6 mg followed by 12 mg of IV adenosine with pause and reset to sinus rhythm. Follow-up EKG on February 17, 2022 at 11:47:03 revealed normal sinus rhythm at 85 bpm with resolution of the ST abnormalities. Later in the evening on February 17, 2022 the patient developed epigastric discomfort with associated nausea and feeling jittery. EKG revealed normal sinus rhythm at 65 bpm with no significant ST-T wave changes. Epigastric discomfort was felt to be secondary to dyspepsia and anxiety. Resting echocardiography on February 18, 2022 revealed normal LV systolic function, ejection fraction 60 to 65%, without wall motion abnormality. In the morning of February 18, 2022 a code purple was called. Patient was notably hypertensive, tachycardic, tachypneic, diaphoretic at that time. She was apparently having visual and auditory hallucinations, receiving IV Dilaudid and IV diazepam with overall improvement. The patient was transferred to room 203 for closer observation being evaluated for possible withdrawal issues. Cardiology consultation requested due to elevated troponin. High-sensitivity troponin was 50.8 on February 17, 2022 at 14:52, rising to 54.4, 62.9, 3124.5, and 2531.2 pg/mL. Continuous telemetry monitoring since being moved to room 203 has revealed sinus/sinus tachycardia with heart rates ranging from the 70s to 120s. Following surgery for diverticulitis in June 2008 patient experienced left- sided nonradiating chest pain that was worse with inspiration. Troponin elevate d. EKG with anteroseptal Q waves, age indeterminate TN. Resting echocardiography at that time revealed severely decreased ejection fraction with multiple wall motion abnormalities and sparing of the base of the heart consistent with Takotsubo cardiomyopathy. July 12, 2008 diagnostic cardiac catheterization revealed angiographically normal coronary arteries. Patient evaluated earlier this morning. She specifically denies chest pain, trouble breathing, palpitations, orthopnea, PND, dizziness, or near syncope. Blood cultures pending. Allergies Allergy/AdvReac Type Severity Reaction Status Date / Time latex Allergy Unknown HIVES Verified 02/16/22 06:18 meperidine [From Demerol] AdvReac Unknown Nausea Verified 02/16/22 06:18 Home Medications Medication Instructions Recorded Confirmed Type calcium polycarbophil 625 mg 1,250 mg PO BID 01/14/20 02/16/22 History tablet (FiberCon) lorazepam 1 mg tablet (Ativan) 1 mg PO DAILY PRN Anxiety 01/14/20 02/16/22 History methylphenidate HCl 20 mg 20 mg PO QAM 01/14/20 02/16/22 History tablet,extended release (Metadate ER) metoprolol succinate 25 mg 25 mg PO QAM 01/14/20 02/16/22 History tablet,extended release 24 hr (Toprol XL) venlafaxine 150 mg 150 mg PO QAM 01/14/20 02/16/22 History capsule,extended release 24 hr (Effexor XR) bupropion HCl 150 mg 24 hr tablet, 150 mg PO QAM 04/28/20 02/16/22 History extended release methylphenidate HCl 5 mg tablet 5 mg PO UD 04/28/20 02/16/22 History naloxone 4 mg/actuation nasal 4 mg intranasal Q2M PRN opioid 10/06/20 02/16/22 Rx spray (Narcan) overdose #2 ea armodafinil 250 mg tablet (Nuvigil) 250 mg PO QAM 01/19/22 02/16/22 History albuterol sulfate 90 mcg/actuation 90 mcg inhalation QID PRN 02/04/22 02/16/22 History aerosol inhaler Shortness Of Breath Or Wheezing calcium 100 mg capsule 100 mg PO QAM 02/04/22 02/16/22 History hydrocodone 5 mg-acetaminophen 325 1 tab PO Q4H PRN pain #18 tabs 02/17/22 Rx mg tablet Patient History Medical History Anxiety Asthma uses occasionally, sometimes depends on weather Chronic radicular lumbar pain Complex sleep apnea syndrome per [facility] records Cytomegaloviral disease hx 1990 Depression Diverticulitis Left knee pain Low O2 saturation happens at night, in process of following up and to be ordered o2 at some p oint for use at night Lumbar post-laminectomy syndrome Nausea and vomiting after administration of anesthetic agent Presence of intrathecal pump Presence of neurostimulator Takotsubo cardiomyopathy resolved per [facility] cardiology 09/29/21 Surgical History History of colon resection due to ruptured diverticulitis - 2008 History of lumbar fusion Hx of appendectomy Hx of cardiac cath 2009 after bowel procedure, complications with low heart rate after procedure no stents placed, no blockage found Hx of laminectomy x2 S/P colonoscopy Family History Father Diabetes Colon cancer Social History Smoking Status: Never smoker Smoking End Date: quit 1994; Second Hand Exposure: No; Do You Dip or Chew Tobacco: No; Tobacco Cessation Education Requested by Patient: No Hx Alcohol Use: No Hx Substance Use: No Preferred Language: Khmer Communication Ability: Effective Visual Impairment: No Limitations Hearing Ability: Normal Source Inspector Required: No Beliefs That Will Affect Care: None marital status: Current Living Situation: Alone current occupational status: unemployed current occupation: fosters dogs Other Information That Helps Us Care for You: No Feels Safe at Home: Yes Safety Concerns: Feels Safe At This Time Assistive Devices: None Review of Systems Review of Systems: A complete and accurate review of systems was unable to be obtained due to the patient's current status Physical Exam Physical Exam: General: Alert to person and place but not to time. Mildly tachypneic. HENT: Normocephalic. Atraumatic. Dried blood throughout the mouth. Eyes: PER. Conjunctiva pink, sclera clear. Neck: No JVD. Heart: Regular at 110 bpm. No murmur. Lungs: Clear to auscultation. Abdomen: +BS. Soft. Nontender. No masses or organomegaly. Beltrán catheter in place. Extremities: No significant edema. No clubbing. No cyanosis. Pulses: radial=2/4, posterior tibial=1/4. Results & Data ([facility]) Vital Signs (Past 12 Hours) Vital Signs Temp Pulse Resp BP Pulse Ox O2 Del Method O2 Flow Rate 02/19/22 06:40 36.6 C 101 H 35 H 170/100 H 98 Nasal Cannula 3 02/19/22 06:03 39 C H 110 H 25 H 141/88 H 97 Nasal Cannula 3 02/19/22 04:30 38.7 C H 105 H 50 H 172/90 H 95 Nasal Cannula 3 02/19/22 03:45 37.1 C 114 H 36 H 192/94 H 95 Nasal Cannula 3 02/19/22 02:19 38.2 C H 96 H 25 H 164/96 H 95 Nasal Cannula 3 02/18/22 23:28 36.8 C 85 17 133/78 90 Nasal Cannula 4 02/18/22 23:21 Nasal Cannula 3 Laboratory Results Cardiac Enzymes 02/19/22 02/19/22 Range/Units 04:36 06:57 Troponin I High Sens 3124.5 H* D 2531.2 H* (0-14) pg/ml CBC 02/19/22 Range/Units 04:36 WBC 24.53 H (4.8-10.8) K/ul RBC 5.61 H (3.93-5.22) M/uL Hgb 16.7 H (12.0-16.0) g/dl Hct 48.7 H (34.1-44.9) % Plt Count 332 (130-400) K/uL Comprehensive Metabolic Panel 02/19/22 Range/Units 04:36 Sodium 135 L (136-145) mmol/L Potassium 3.3 L (3.5-5.1) mmol/L Chloride 101 (98-107) mmol/L Carbon Dioxide 23 (21-32) mmol/L BUN 24 H (6-23) mg/dl Creatinine 0.81 (0.6-1.2) mg/dl Glucose 148 H (70-99(Fasting)) mg/dl Calcium 8.9 (8.5-10.1) mg/dl Intake and Output 02/18/22 02/19/22 02/19/22 22:59 06:59 14:59 Intake Total 1011.2 / 1011.2 456.667 / 456.667 Output Total 1050 / 1400 350 / 1400 Balance -38.8 / -388.8 -350 / -388.8 456.667 / 456.667 Intake: IV 1011.2 / 1011.2 456.667 / 456.667 Acetaminophen 1,000 mg In 100 100 / 100 ml @ 400 mls/hr IV Q8H PRN Rx#: [id number] Ampicillin 2,000 mg In Sodium 100 / 100 Chlor 0.9% Ad-Van 100 ml @ 200 mls/hr IV Q4H PENDING SALE TO [facility] Rx#:[id number] Multi-Vitamin Infusion 10 ml 1011.2 / 1011.2 Thiamine HCl 100 mg Folic Acid 1 mg In Sodium Chloride 0.9% 1000ML 1,000 ml @ 500 mls/hr IV .Q2H2M ONE Rx#:[id number] Potassium Chloride / Wtr 10 meq 186.667 / 186.667 In 100 ml @ 100 mls/hr IV Q1H PENDING SALE TO [facility] Rx#:[id number] cefTRIAXone SODIUM 2,000 mg In 70 / 70 Dextrose 5% 50 ml @ 100 mls/hr IV Q12H PENDING SALE TO [facility] Rx#:[id number] Output: Stool 0 / 0 Urine Amount (Catheter) 1050 / 1400 350 / 1400 Beltrán/Indwelling 1050 / 1400 350 / 1400 Other: Weight 87.9 kg Weight Measurement Method Built in [facility]
[2022-02-19] MEDS: ACYCLOVIR SOD IV SCH ×2 (10:49→18:37)
[2022-02-19] MEDS: DEXTROSE 5% IV SCH ×2 (10:49→18:37)
[2022-02-19] MEDS: CEFEPIME 2,000 MG in SYRINGE 0 ML IV SCH ×2 (10:49→17:53)
[2022-02-19] MEDS: METOPROLOL TARTRATE 1 MG/ML VIAL IV SCH ×4 (11:24→23:40)
--- NOTE | 2022-02-19 12:15 | Anesthesiology Consultation ---
Date of Service February 19, 2022 Assessment & Plan Chart Review Chart Review: Acceptable Risk for Surgery and Patient NOT seen in Pre Admission Testing Consults Requested none History Surgery Operation Date: 02/16/22 07:30 Proposed Procedures p Revision of Intrathecal Catheter and Possible Replacement or Revision of Intrathecal Pain Pump - Luis F Alcantar MD, FIPP Operation Date: 02/19/22 11:30 Proposed Procedures p Radiation Treatment w/Anesthesia Sedatio - Raghavendra Pimnetel MD Height/Weight Height: 5 ft 3 in Weight: 87.9 kg Allergies Allergy/AdvReac Type Severity Reaction Status Date / Time latex Allergy Unknown HIVES Verified 02/16/22 06:18 meperidine [From Demerol] AdvReac Unknown Nausea Verified 02/16/22 06:18 Medications Home Medications Medication Instructions Recorded Confirmed Last Taken calcium polycarbophil 625 mg 1,250 mg PO BID 01/14/20 02/16/22 02/15/22 21:00 tablet (FiberCon) lorazepam 1 mg tablet (Ativan) 1 mg PO DAILY PRN Anxiety 01/14/20 02/16/22 02/16/22 04:00 0.5 tab methylphenidate HCl 20 mg 20 mg PO QAM 01/14/20 02/16/22 02/15/22 05:00 tablet,extended release (Metadate ER) metoprolol succinate 25 mg 25 mg PO QAM 01/14/20 02/16/22 02/15/22 05:00 tablet,extended release 24 hr (Toprol XL) venlafaxine 150 mg 150 mg PO QAM 01/14/20 02/16/22 02/16/22 04:00 capsule,extended release 24 hr (Effexor XR) bupropion HCl 150 mg 24 hr tablet, 150 mg PO QAM 04/28/20 02/16/22 02/16/22 04:00 extended release methylphenidate HCl 5 mg tablet 5 mg PO UD 04/28/20 02/16/22 02/15/22 08:00 naloxone 4 mg/actuation nasal 4 mg intranasal Q2M PRN opioid 10/06/20 02/16/22 Unknown spray (Narcan) overdose #2 ea armodafinil 250 mg tablet (Nuvigil) 250 mg PO QAM 01/19/22 02/16/22 02/15/22 05:00 albuterol sulfate 90 mcg/actuation 90 mcg inhalation QID PRN 02/04/22 02/16/22 02/16/22 04:00 aerosol inhaler Shortness Of Breath Or Wheezing calcium 100 mg capsule 100 mg PO QAM 02/04/22 02/16/22 02/15/22 21:00 hydrocodone 5 mg-acetaminophen 325 1 tab PO Q4H PRN pain #18 tabs 02/17/22 Unknown mg tablet Active Medications Generic Name Dose Route Start Last Admin Trade Name Freq PRN Reason Stop Dose Admin Hydrocodone Bitart/Acetaminophen 1 tab 02/16/22 13:13 02/17/22 20:09 Hydrocodone/Acetamophen 5/325mg Tab PO 03/02/22 13:12 1 tab Q4H PRN Administration Pain Bupropion HCl 150 mg 02/17/22 09:00 02/19/22 10:20 Bupropion Xl 150 Mg Tabcr PO 03/19/22 08:59 Not Given QAM LALITA Hydromorphone HCl 30 mg 02/19/22 08:23 02/19/22 10:22 Hydromorphone Electronic System Engineer 30 Mg/30 Ml IV 03/05/22 08:22 30 mg PRN PRN Administration SHEARING MACHINE OPERATOR Pain Titration Protocol Thiamine HCl 100 mg/ Syringe 10 mls @ 2 mls/min 02/18/22 13:15 02/19/22 09:09 IV 03/20/22 13:14 2 mls/min QAM LALITA Administration Lorazepam 1 mg/ Syringe 1 mls @ 2 mls/min 02/18/22 18:47 02/19/22 07:40 IV 03/20/22 18:46 2 mls/min Q4H PRN Administration Anxiety/Agitation Ampicillin Sodium 2,000 mg/ 100 mls @ 200 mls/hr 02/19/22 06:00 02/19/22 11:30 Sodium Chloride IV 03/01/22 05:59 200 mls/hr Q4H LALITA Administration Acetaminophen 1,000 mg in 100 mls @ 400 mls/hr 02/19/22 05:08 02/19/22 07:57 Ofirmev IV 02/22/22 05:07 Infused Q8H PRN Infusion fevr or pain Sodium Chloride 1,000 mls @ 80 mls/hr 02/19/22 08:30 02/19/22 10:22 Nss 1000ml IV 03/05/22 08:23 80 mls/hr .[id number] LALITA Administration Cefepime HCl 2,000 mg/ Syringe 20 mls @ 5 mls/min 02/19/22 10:30 02/19/22 10:49 IV 03/01/22 10:29 5 mls/min Q8H LALITA Administration Acyclovir Sodium 675 mg/ 113.5 mls @ 113.5 mls/hr 02/19/22 10:15 02/19/22 10:49 Dextrose IV 03/01/22 10:14 113.5 mls/hr Q8H LALITA Administration Protocol Metoprolol Succinate 50 mg 02/19/22 09:00 02/19/22 07:47 Metoprolol Succ 50mg Ext Rel Tab PO 03/21/22 08:59 50 mg QAM LALITA Administration Metoprolol Tartrate 5 mg 02/19/22 12:00 02/19/22 11:24 Metoprolol Tartrate 1 Mg/Ml Vial IV 03/21/22 11:59 5 mg Q4 LALITA Administration Ondansetron HCl 4 mg 02/16/22 11:19 02/17/22 23:14 Ondansetron Inj 2 Mg/Ml 2 Ml Vial IV 03/18/22 11:18 4 mg Q4H PRN Administration Nausea And Vomiting Venlafaxine HCl 150 mg 02/17/22 09:00 02/19/22 10:20 Venlafaxine Hcl Xr 150 Mg Capxr PO 03/19/22 08:59 Not Given QAM LALITA NPO Date Last Intake of Fluids: 02/15/22 Time Last Intake of Fluids: 22:00 Date Last Intake of Solids: 02/15/22 Time Last Intake of Solids: 22:00 Past Medical History Medical History Anxiety Asthma uses occasionally, sometimes depends on weather Chronic radicular lumbar pain Complex sleep apnea syndrome per [facility] records Cytomegaloviral disease hx 1990 Depression Diverticulitis Left knee pain Low O2 saturation happens at night, in process of following up and to be ordered o2 at some point for use at night Lumbar post-laminectomy syndrome Nausea and vomiting after administration of anesthetic agent Presence of intrathecal pump Presence of neurostimulator Takotsubo cardiomyopathy resolved per [facility] cardiology 09/29/21 Past Family History Family History Father Diabetes Colon cancer Past Surgical History Surgical History History of colon resection due to ruptured diverticulitis - 2008 History of lumbar fusion Hx of appendectomy Hx of cardiac cath 2008 after bowel procedure, complications with low heart rate after procedure no stents placed, no blockage found Hx of laminectomy x2 S/P colonoscopy Social History Smoking Status: Never smoker Do You Dip or Chew Tobacco: No Smoking End Date: quit 1994 Hx Alcohol Use: No Hx Substance Use: No substance use type: does not use Physical Exam Vital Signs Last Vital Signs Temp 99.0 F 02/19/22 11:16 Pulse 105 H 02/19/22 11:24 Resp 32 H 02/19/22 11:16 BP 156/103 H 02/19/22 11:24 Pulse Ox 96 02/19/22 11:16 O2 Del Method 02/19/22 11:16 O2 Flow Rate 3 02/19/22 11:16 Testing Laboratory Results 02/19/22 04:36 02/19/22 04:36 Urine Color Yellow 02/18/22 13:40 Urine Appearance Clear (Clear) 02/18/22 13:40 Urine pH 6.5 (4.5-7.5) 02/18/22 13:40 Ur Specific Black 1.017 (1.000-1.030) 02/18/22 13:40 Urine Protein 2+ (Negative) H 02/18/22 13:40 Urine Glucose (UA) Negative (Negative) 02/18/22 13:40 Urine Ketones 2+ (Negative) H 02/18/22 13:40 Urine Nitrite Negative (Negative) 02/18/22 13:40 Ur Leukocyte Esterase Negative (Negative) 02/18/22 13:40 Urine WBC (Auto) 1-5 /hpf (0-5) 02/18/22 13:40 Urine RBC (Auto) 5-10 /hpf (0-4) H 02/18/22 13:40 U Hyaline Cast (Auto) 1-5 /lpf (0-5) 02/18/22 13:40 U Epithel Cells (Auto) 20-30 /lpf (0-5) H 02/18/22 13:40 Urine Bacteria (Auto) Negative (Negative) 02/18/22 13:40 Electrocardiogram Date: 02/19/22 Findings: + NSR @ Echocardiogram Date: 11/03/20 EF 65-69% Normal LV wall motion Grade II diastolic dysfunction Mildly enlarged LA Pulmonary artery systolic pressure 26 mmHg No evidence of pulmonary hypertension No significant valvular pathology
[2022-02-19] MEDS ORDERED: fentaNYL citrate 100 MCG/2 ML VIAL ONE (12:40)
[2022-02-19] MEDS ORDERED: MIDAZOLAM HCL 1 MG/ML 2ML VIAL ONE (12:40)
[2022-02-19] MEDS ORDERED: GABAPENTIN 400 MG CAP PO SCH (14:00)
--- NOTE | 2022-02-19 14:10 | Fluoroscopy Report ---
FLUOROSCOPICALLY GUIDED LUMBAR PUNCTURE CLINICAL HISTORY: delirium , fever, recent intrathecal cath exchange FLUOROSCOPY TIME: 1.1 minutes. NUMBER OF FLUOROSCOPIC IMAGES: 0. PROCEDURE: The procedure, risks and benefits were discussed with the patient's mother given patient' s altered mental status including the risk of spinal headache, bleeding and infection. The patient's mother agreed to the procedure and informed written consent was obtained. The procedure was performed by Dr. David following a timeout. Skin of the lower back was prepped and draped in sterile fashi on and local anesthesia was achieved with 1% lidocaine. Given L4-L5 fusion as well as intrathecal cat heters, the L5-S1 level was targeted. Despite multiple attempts, no definite CSF was collected. Cross table lateral radiograph demonstrated the needle tip within the canal. The L4-L5 level was then targe lalito. A small amount (0.5 cc) of bloody fluid was collected. This probably does not reflect CSF. Howev er, this was sent to the laboratory for analysis. No additional levels were attempted. No immediate c omplications were evident. IMPRESSION: Attempted fluoroscopically guided lumbar puncture. Small amount of bloody fluid collected however this probably does not reflect CSF. This was sent to the laboratory for analysis. Despite mu ltiple attempts, no definite CSF could be collected due to multiple dry taps. ACT 112: Negative or not required by law. Electronically signed by: Blayne David M.D. 02/19/2022 2:08 PM
--- NOTE | 2022-02-19 14:20 | Electrocardiogram Report ---
Test Reason : Blood Pressure : / mmHG Vent. Rate : 108 BPM Atrial Rate : 108 BPM P-R Int : 140 ms QRS Dur : 088 ms QT Int : 324 ms P-R-T Axes : 066 -46 063 degrees QTc Int : 434 ms Poor data quality, interpretation may be adversely affected Sinus tachycardia Left atrial enlargement Left axis deviation Anterior infarct , age undetermined Abnormal ECG When compared with ECG of 17-FEB-2022 22:31, Vent. rate has increased BY 43 BPM QRS axis Shifted left ST now depressed in Lateral leads Confirmed by Sae Chan ([id number]) on 02/19/2022 2:20:23 PM Referred By: Luis F Alcantar Confirmed By:Sae Chan
--- NOTE | 2022-02-19 14:26 | Anesthesiology Progress Note ---
Date of Service February 19, 2022 Anesthesia Post Procedure Vital Signs Vital Signs: Temp Pulse Pulse Pulse Resp BP BP 02/19/22 12:30 100.0 F H 88 24 160/97 H 02/19/22 08:23 02/19/22 11:16 99.0 F 98 H 32 H 156/103 H 02/19/22 11:24 105 H 156/103 H 02/19/22 06:40 97.9 F 101 H 35 H 170/100 H 02/19/22 06:03 102.2 F H 110 H 25 H 141/88 H 02/19/22 04:30 101.7 F H 105 H 50 H 172/90 H 02/19/22 03:45 98.8 F 114 H 36 H 192/94 H 02/19/22 02:19 100.8 F H 96 H 25 H 164/96 H 02/18/22 23:28 98.2 F 85 17 133/78 02/18/22 23:21 02/18/22 21:54 02/18/22 19:50 98.4 F 86 18 164/83 H 02/18/22 15:37 98.8 F 86 20 151/107 H Pulse Ox Pulse Ox O2 Del Method O2 Del Method O2 Flow Rate O2 Flow Rate 02/19/22 12:30 99 Nasal Cannula 3 02/19/22 08:23 Nasal Cannula 3 02/19/22 11:16 96 Nasal Cannula 3 02/19/22 11:24 02/19/22 06:40 98 Nasal Cannula 3 02/19/22 06:03 97 Nasal Cannula 3 02/19/22 04:30 95 Nasal Cannula 3 02/19/22 03:45 95 Nasal Cannula 3 02/19/22 02:19 95 Nasal Cannula 3 02/18/22 23:28 90 Nasal Cannula 4 02/18/22 23:21 Nasal Cannula 3 02/18/22 21:54 98 Nasal Cannula 3 02/18/22 19:50 96 Nasal Cannula 4 02/18/22 15:37 97 Nasal Cannula 4.0 Pain Intensity Lower Back: Pain Intensity: 7 Transfer of Care Handoff Completed per policy Notes Mental Status: alert / awake / arousable and participated in evaluation Patient Amnestic to Procedure: Yes Nausea / Vomiting: adequately controlled Pain: adequately controlled Airway Patency, RR, SpO2: stable & adequate BP & HR: stable & adequate Hydration State: stable & adequate Anesthetic Complications: no major complications apparent and Pt Satisfied with anesthetic care
[2022-02-19] MEDS: VANCOMYCIN HCL 1,000 MG in SODIUM CHLORIDE 0.9% 250 ML IV SCH (15:06)
--- NOTE | 2022-02-19 19:07 | Hospitalist Progress Note ---
Date of Service February 19, 2022 Assessment & Plan (1) Delirium: Plan: Etiology of her deliriuminfeciton vs could be opiate withdrawal. Family denies the patient having alcohol use however she was given thiamine and banana bag with fever initiated on acyclovir, cefepime, unasyn, vancomycin, unable to get cultures, if improves with hydromorphone infusion as she seems to be rapidly, may consider stopping medication if neurologic status improves afer 48 hours and cultures negative If this were to be seizure-like episode it would be an atypical seizures the patient was alert during the episode without postictal phase she did respond mostly to parenteral opiates suggesting this could be opiate withdrawal. CT scan of her head without evidence of intracranial issues urinalysis is sent without initial concerns for infection (2) SVT (supraventricular tachycardia): Plan: Patient was tachycardic today but not supraventricular tachycardia. This is resolved and has not recurred Initial high-sensitivity troponin is 50 was in the 60s on recheck but no uptrend after discussion with [facility] cardiology will continue to support beta- blockade use and titrate as can be able Patient be maintained on her metoprolol succinate however dose may be titrated up if need be (3) Elevated troponin: Plan: Patient with elevated troponin from possible hypertensive urgency versus elevated blood pressure from PILLOWCASE MAKER infection. Cardiology is consulted. Cannot anticoagulate with recent intrathecal catheter placement. Aspirin given p erirectally cardiology may have limited echocardiogram looking for regional wall motion abnormalities to rule out acute coronary event. Commending increasing metoprolol and her Ritalin (4) Presence of intrathecal pump: Plan: Patient underwent exploration of intrathecal catheter and spinal cord stimulator leads insertion of new intrathecal catheter and reprogram refill of intrathecal pump on 02/16/2022, Given the difficulties of finding her old intrathecal catheter Was placed in her pump dosing was adjusted. on parenteral opiates to calculate her typical daily need Patient denies any additional opiate use and so does her family however this could be opiate withdrawal we will augment her with intravenous opiates over the 24 hours and adjust the pump as able. Look for secondary causes of delirium (5) Depression: Plan: Continues on venlafaxine (6) Takotsubo cardiomyopathy: Plan: Patient follows with [facility] cardiology for previous history of Takotsubo's cardiomyopathy. Patient's most recent echo in 2020 a normal ejection fraction and no wall motion abnormalities Admission and Anticipated Discharge Date Admission Date: February 18, 2022 Subjective Felicitas's state has worsened however after opiate infusion continuous she is with less symptoms and still able to wake up and have a conversation. She is not hallucinating and seems more calm today attempts at LP was unsuccessful, will attempt to culture what fluid we were able to get. continue empiric treatment for meningitis, and opiate infusion for possible opiate withdrawal Review of Systems Review of Systems: Review of systems unable due to lethargy and medications Physical Exam Physical Exam: Pt is more improved no further shaking, no hallucinations, able to speak and protect airway Vital signs as documented. Lungs are clear to auscultation and appear without focal deficit Cardiac exam, Rhythm is sinus mechanism with tachycardia.. No murmurs, rubs or gallops. Abdominal exam reveals normal bowel sounds, soft non tender, no masses Extremities are nonedematous and both pedal pulses are normal. Neurologic exam is alert and oriented, he is confused but less delirious no focal loss of strength or sensation Skin is without bruises or rashes Results & Data Results & Data ([facility]) Vital Signs (Past 12 Hours) Vital Signs Temp Pulse Pulse Pulse Resp BP BP 02/19/22 17:27 82 158/98 H 02/19/22 16:00 97.5 F L 83 24 151/85 H 02/19/22 12:30 100.0 F H 88 24 160/97 H 02/19/22 08:23 02/19/22 11:16 99.0 F 98 H 32 H 156/103 H 02/19/22 11:24 105 H 156/103 H Pulse Ox O2 Del Method O2 Flow Rate 02/19/22 17:27 02/19/22 16:00 95 Nasal Cannula 3 02/19/22 12:30 99 Nasal Cannula 3 02/19/22 08:23 Nasal Cannula 3 02/19/22 11:16 96 Nasal Cannula 3 02/19/22 11:24 PG Care Time/CCT Total # of Minutes Spent Total Time Spent with Patient: Total time spent is greater than 50% in coordination of care (as documented) at patient's floor/unit and/or counseling patient: Coding Level of Care Code 59454 Subseq Hosp Care Lvl 3 Diagnoses Delirium R41.0 SVT (supraventricular tachycardia) I47.1 Elevated troponin R77.8 Presence of intrathecal pump Z97.8 Depression F32.9 Takotsubo cardiomyopathy I51.81
[2022-02-20] MEDS: AMPICILLIN 2,000 MG in SODIUM CHLOR 0.9% AD-VAN 100 ML IV SCH ×6 (01:35→21:29)
[2022-02-20] MEDS: DEXTROSE 5% IV SCH ×3 (02:04→17:34)
[2022-02-20] MEDS: ACYCLOVIR SOD IV SCH ×3 (02:04→17:34)
[2022-02-20] MEDS: CEFEPIME 2,000 MG in SYRINGE 0 ML IV SCH ×3 (02:43→17:40)
[2022-02-20] MEDS: METOPROLOL TARTRATE 1 MG/ML VIAL IV SCH ×3 (03:27→11:50)
[2022-02-20] MEDS: VANCOMYCIN HCL 1,000 MG in SODIUM CHLORIDE 0.9% 250 ML IV SCH ×2 (04:50→16:04)
[2022-02-20 06:15] LABS: Hematocrit (blood only) 44.1 % (34.1-44.9); Hemoglobin 14.2 g/dl (12.0-16.0); Mean Corpuscular Hemoglobin 29.3 pg (25.0-34.0); Mean Corpuscular Hgb Conc 32.2 g/dL (32.0-36.0); Mean Corpuscular Volume 91.1 fL (80.0-100.0); Platelet Count 173 K/uL (130-400); RDW Coefficient of Variation 13.2 % (11.5-14.5); RDW Standard Deviation 43.8 fL (36.4-46.3); Red Blood Count 4.84 M/uL (3.93-5.22); White Blood Count 18.06 K/ul (4.8-10.8)
[2022-02-20 07:08] LABS: BUN Creatinine Ratio 38.8 (10-20); Creatinine Clr Calc Pharmacy 93.9 ml/min; Est GFR (African American) 110.7 ml/min; Est GFR (Non-African American) 95.5 ml/min; Magnesium 2.1 mg/dl (1.7-2.4)
[2022-02-20] MEDS: VENLAFAXINE HCL XR 150 MG CAPXR PO SCH (08:08)
[2022-02-20] MEDS: THIAMINE HCL 100 MG in SYRINGE 9 ML IV SCH (08:09)
[2022-02-20] MEDS ORDERED: LORazepam 0.5 MG TAB PO PRN (11:45)
[2022-02-20] MEDS: SODIUM CHLORIDE 0.9% 1000ML 1,000 ML IV SCH (11:46)
[2022-02-20] MEDS: METOPROLOL SUCC 25MG EXT REL TAB PO SCH (12:50)
--- NOTE | 2022-02-20 13:54 | Hospitalist Progress Note ---
Date of Service February 20, 2022 Assessment & Plan (1) Delirium: Plan: Now resolved. Diet has been advanced. IV medications switched to oral route. e will continue intravenous antibiotics and antivirals until CSF studies prove negative. CT scan of her head without evidence of intracranial issues . (2) SVT (supraventricular tachycardia): Plan: No recurrence. We will treat as needed. Continue telemetry. IV metoprolol has been switched back to oral dosing (3) Elevated troponin: Plan: o evidence of acute myocardial infarction. Continue telemetry. Will follow (4) Presence of intrathecal pump: Plan: Patient underwent surgery on 02/16/2022 with exploration of intrathecal catheter and spinal cord stimulator leads insertion of new intrathecal catheter. Encephalopathy etiology could be opiate withdrawal related. (5) Depression: Plan: Treated with venlafaxine (6) Takotsubo cardiomyopathy: Plan: Patient follows with [facility] cardiology for previous history of Takotsubo's cardiomyopathy. Patient's most recent echo in 2020 revealed a normal ejection fraction and no wall motion abnormalities Plan To be determined Admission and Anticipated Discharge Date Admission Date: February 18, 2022 Subjective Alert and oriented. IV medications switched back to oral dosing route. Diet has been advanced. We will continue intravenous antibiotics until CSF cultures prove negative. Review of Systems Review of Systems: Constitutional-no fever or chills ENT-no blurred vision, no double vision, no epistaxis, no sore throat Respiratory-no cough, no wheezing, no shortness of breath Cardiac-no palpitations, no chest pain, no syncope GI-no nausea, vomiting, diarrhea, melena, hematochezia -no urinary retention, no urinary incontinence, no dysuria, no hematuria Musculoskeletal-no joint pain, no muscle tenderness. Generalized weakness however Skin-no bruising, no rashes, no pruritus Neuro-no paresthesia, no weakness Psych-no depression, no anxiety Physical Exam Physical Exam: General-alert and oriented x3, no fevers, no chills HEENT-head atraumatic and normocephalic, pupils equal and reactive to light, extraocular muscles intact Neck-no lymphadenopathy or thyromegaly, trachea midline Chest-clear to auscultation percussion. No rales wheezing or rhonchi Cardiac-regular rate and rhythm, normal S1 and S2, no murmurs Abdomen-normal bowel sounds, nontender, no hepatosplenomegaly Extremities-no cyanosis, clubbing, or edema Neuro-cranial nerves II through XII intact, motor and sensory function within normal limits, strength symmetrical , no focal deficits Psych-normal affect, normal mood Results & Data Results & Data ([facility]) Vital Signs (Past 12 Hours) Vital Signs Temp Pulse Pulse Resp BP BP Pulse Ox 02/20/22 12:04 37.1 C 74 20 139/72 92 02/20/22 11:50 84 139/72 02/20/22 08:11 71 122/80 02/20/22 07:21 02/20/22 07:07 36.6 C 65 20 136/82 94 02/20/22 03:27 74 119/85 02/20/22 02:41 37.1 C 70 20 129/78 94 O2 Del Method O2 Flow Rate 02/20/22 12:04 Nasal Cannula 2 02/20/22 11:50 02/20/22 08:11 02/20/22 07:21 Nasal Cannula 3 02/20/22 07:07 Nasal Cannula 2 02/20/22 03:27 02/20/22 02:41 Nasal Cannula 3.5 Laboratory Results 02/20/22 05:26 02/20/22 05:26 PG Care Time/CCT Total # of Minutes Spent Total Time Spent with Patient: Total time spent is greater than 50% in coordination of care (as documented) at patient's floor/unit and/or counseling patient: Coding Level of Care Code 39407 Subseq Hosp Care Lvl 3 Diagnoses Delirium R41.0 SVT (supraventricular tachycardia) I47.1 Elevated troponin R77.8 Presence of intrathecal pump Z97.8 Depression F32.9 Takotsubo cardiomyopathy I51.81
[2022-02-20] MEDS: HYDROCODONE/ACETAMOPHEN 5/325MG TAB PO PRN (15:58)
[2022-02-20] MEDS: hydrALAZINE HCL 20 MG/ML VIAL IV PRN (16:02)
[2022-02-20] MEDS: DOCUSATE SODIUM 100 MG CAP PO SCH (16:20)
[2022-02-20] MEDS: CALCIUM POLYCARBOPHIL 625MG TAB PO SCH (16:20)
[2022-02-20] MEDS: MoRPHine SULFATE 2 MG/ML CARP IV PRN ×2 (16:42→19:58)
[2022-02-20] MEDS ORDERED: GABAPENTIN 400 MG CAP PO SCH (18:00)
[2022-02-20] MEDS: ONDANSETRON INJ 2 MG/ML 2 ML VIAL IV PRN (19:59)
[2022-02-21] MEDS: MoRPHine SULFATE 2 MG/ML CARP IV PRN ×5 (00:09→20:40)
[2022-02-21] MEDS: diphenhydrAMINE Capsule 25 MG CAP PO PRN (01:09)
[2022-02-21] MEDS: AMPICILLIN 2,000 MG in SODIUM CHLOR 0.9% AD-VAN 100 ML IV SCH ×3 (01:10→10:47)
[2022-02-21] MEDS: ACYCLOVIR SOD IV SCH (01:44)
[2022-02-21] MEDS: DEXTROSE 5% IV SCH (01:44)
[2022-02-21] MEDS: CEFEPIME 2,000 MG in SYRINGE 0 ML IV SCH (02:54)
[2022-02-21] MEDS ORDERED: VANCOMYCIN LEVEL ONE (03:00)
[2022-02-21] MEDS: VANCOMYCIN HCL 1,000 MG in SODIUM CHLORIDE 0.9% 250 ML IV SCH (03:50)
[2022-02-21 04:03] LABS: Hematocrit (blood only) 40.2 % (34.1-44.9); Hemoglobin 13.6 g/dl (12.0-16.0); Mean Corpuscular Hemoglobin 29.7 pg (25.0-34.0); Mean Corpuscular Hgb Conc 33.8 g/dL (32.0-36.0); Mean Corpuscular Volume 87.8 fL (80.0-100.0); Mean Platelet Volume 10.8 fL (9.4-12.3); Platelet Count 207 K/uL (130-400); RDW Coefficient of Variation 12.9 % (11.5-14.5); RDW Standard Deviation 40.9 fL (36.4-46.3); Red Blood Count 4.58 M/uL (3.93-5.22); White Blood Count 14.86 K/ul (4.8-10.8)
[2022-02-21 04:35] LABS: BUN Creatinine Ratio 29.2 (10-20); Calcium 8.1 mg/dl (8.5-10.1); Est GFR (African American) 123.6 ml/min; Est GFR (Non-African American) 106.6 ml/min; Magnesium 1.9 mg/dl (1.7-2.4); Potassium 3.1 mmol/L (3.5-5.1)
[2022-02-21] MEDS: ONDANSETRON INJ 2 MG/ML 2 ML VIAL IV PRN (05:34)
[2022-02-21] MEDS: ACETAMINOPHEN 325 MG TAB PO PRN ×2 (08:07→20:41)
[2022-02-21] MEDS: METOPROLOL SUCC 25MG EXT REL TAB PO SCH (08:08)
[2022-02-21] MEDS: THIAMINE HCL 100 MG TAB PO SCH (08:08)
[2022-02-21] MEDS: VENLAFAXINE HCL XR 150 MG CAPXR PO SCH (08:08)
--- NOTE | 2022-02-21 09:35 | Pharmacy Report ---
Pharmacy PK ABX Note - Date of Service February 21, 2022 - Assessment and Plan Assessment 61 year old F receiving VANCOMYCIN + CEFEPIME + AMPICILLIN + ACYCLOVIR for treatment of meningitis/encephalitis in patient with recent change of intrathecal pump. Question of infectious process +/- withdrawal syndrome * Pertinent microbiologic data includes: No growth in any cultures including CSF * Day #3 of antimicrobial therapy * Pharmacy to dose vancomycin Plan Vancomycin * Current regimen: 1000 mg IV every 12 hours * Trough level obtained 02/21/22 resulted as 8.7 mcg/mL. This is subtherapeutic. * Change to 1500 mg IV every 12 hours. Predicted AUC at steady state: 445 mg/L.hr * Repeat trough level ordered for: 02/22/22 Pharmacy will continue to follow and will adjust dose/frequency as necessary. Thank you. Pharmacy has transitioned to AUC monitoring for vancomycin. AUC/MORENO is the preferred PK/PD target and is associated with decreased risk of nephrotoxicity compared to traditional trough targets.
[2022-02-21] MEDS: POTASSIUM CHLORIDE CRTAB 20 MEQ TABCR PO SCH ×2 (11:17→20:41)
[2022-02-21] MEDS ORDERED: VANCOMYCIN HCL 1,500 MG in SODIUM CHLORIDE 0.9% 500 ML IV SCH (12:00)
[2022-02-21] MEDS: HYDROCODONE/ACETAMOPHEN 5/325MG TAB PO PRN ×2 (14:24→18:30)
--- NOTE | 2022-02-21 14:28 | Hospitalist Progress Note ---
Date of Service February 21, 2022 Assessment & Plan (1) Delirium: Plan: Now resolved. Diet has been advanced. IV medications have been switched to oral route. Antibiotics and antivirals discontinued today, February 21 . All cultures remain negative. CT scan of her head without evidence of intracranial issues . (2) SVT (supraventricular tachycardia): Plan: No recurrence. We will treat as needed. Continue telemetry. IV metoprolol has been switched back to oral dosing (3) Elevated troponin: Plan: No evidence of acute myocardial infarction. Continue telemetry. Will follow (4) Presence of intrathecal pump: Plan: Patient underwent surgery on 02/16/2022 with exploration of intrathecal catheter and spinal cord stimulator leads insertion of new intrathecal catheter. Encephalopathy etiology could be opiate withdrawal related. (5) Depression: Plan: Treated with venlafaxine (6) Takotsubo cardiomyopathy: Plan: Patient follows with [facility] cardiology for previous history of Takotsubo's cardiomyopathy. Patient's most recent echo in 2020 revealed a normal ejection fraction and no wall motion abnormalities Plan To be determined. OT and PT assessments requested Admission and Anticipated Discharge Date Admission Date: February 18, 2022 Subjective Alert and oriented. Cultures remain negative to date. Ampicillin, cefepime, vancomycin, and acyclovir have been discontinued. We will consult chronic pain management since she sees them on an outpatient basis and has a chronic pain pump. Oral potassium replacement ordered. OT and PT assessments requested Review of Systems Review of Systems: Constitutional-no fever or chills ENT-no blurred vision, no double vision, no epistaxis, no sore throat Respiratory-no cough, no wheezing, no shortness of breath Cardiac-no palpitations, no chest pain, no syncope GI-no nausea, vomiting, diarrhea, melena, hematochezia -no urinary retention, no urinary incontinence, no dysuria, no hematuria Musculoskeletal-no joint pain, no muscle tenderness. Generalized weakness however Skin-no bruising, no rashes, no pruritus Neuro-no paresthesia, no weakness Psych-no depression, no anxiety Physical Exam Physical Exam: General-alert and oriented x3, no fevers, no chills HEENT-head atraumatic and normocephalic, pupils equal and reactive to light, extraocular muscles intact Neck-no lymphadenopathy or thyromegaly, trachea midline Chest-clear to auscultation percussion. No rales wheezing or rhonchi Cardiac-regular rate and rhythm, normal S1 and S2, no murmurs Abdomen-normal bowel sounds, nontender, no hepatosplenomegaly Extremities-no cyanosis, clubbing, or edema Neuro-cranial nerves II through XII intact, motor and sensory function within normal limits, strength symmetrical , no focal deficits Psych-normal affect, normal mood Results & Data Results & Data ([facility]) Vital Signs (Past 12 Hours) Vital Signs Temp Pulse Resp BP Pulse Ox O2 Del Method O2 Flow Rate 02/21/22 02:55 37.0 C 87 18 170/80 H 97 Nasal Cannula 2 Laboratory Results 02/21/22 03:29 02/21/22 03:29 PG Care Time/CCT Total # of Minutes Spent Total Time Spent with Patient: Total time spent is greater than 50% in coordination of care (as documented) at patient's floor/unit and/or counseling patient: Coding Level of Care Code 01030 Subseq Hosp Care Lvl 3 Diagnoses Delirium R41.0 SVT (supraventricular tachycardia) I47.1 Elevated troponin R77.8 Presence of intrathecal pump Z97.8 Depression F32.9 Takotsubo cardiomyopathy I51.81
[2022-02-21] MEDS: POLYETHYLENE (MIRALAX) 17 GM PACK PO PRN (22:21)
[2022-02-21] MEDS: DOCUSATE SODIUM 100 MG CAP PO SCH (22:21)
[2022-02-22] MEDS: MoRPHine SULFATE 2 MG/ML CARP IV PRN ×4 (02:08→21:05)
[2022-02-22] MEDS: ACETAMINOPHEN 325 MG TAB PO PRN (03:22)
[2022-02-22] MEDS: HYDROCODONE/ACETAMOPHEN 5/325MG TAB PO PRN ×3 (05:52→16:53)
[2022-02-22] MEDS ORDERED: GABAPENTIN 400 MG CAP PO SCH (06:00)
[2022-02-22 07:00] LABS: Hemoglobin 14.4 g/dl (12.0-16.0); Mean Corpuscular Hemoglobin 29.5 pg (25.0-34.0); Mean Corpuscular Hgb Conc 34.3 g/dL (32.0-36.0); Mean Corpuscular Volume 86.1 fL (80.0-100.0); Mean Platelet Volume 10.8 fL (9.4-12.3); Platelet Count 264 K/uL (130-400); RDW Coefficient of Variation 12.6 % (11.5-14.5); RDW Standard Deviation 39.3 fL (36.4-46.3); Red Blood Count 4.88 M/uL (3.93-5.22)
[2022-02-22 07:47] LABS: BUN Creatinine Ratio 18.6 (10-20); Calcium 8.3 mg/dl (8.5-10.1); Creatinine Clr Calc Pharmacy 106.2 ml/min; Est GFR (African American) 115.5 ml/min; Est GFR (Non-African American) 99.6 ml/min; Potassium 3.4 mmol/L (3.5-5.1)
[2022-02-22] MEDS: DOCUSATE SODIUM 100 MG CAP PO SCH ×2 (09:22→21:08)
[2022-02-22] MEDS: POTASSIUM CHLORIDE CRTAB 20 MEQ TABCR PO SCH ×2 (09:22→21:08)
[2022-02-22] MEDS: VENLAFAXINE HCL XR 150 MG CAPXR PO SCH (09:22)
[2022-02-22] MEDS: POLYETHYLENE (MIRALAX) 17 GM PACK PO PRN (09:22)
[2022-02-22] MEDS: METOPROLOL SUCC 25MG EXT REL TAB PO SCH (09:23)
[2022-02-22] MEDS: THIAMINE HCL 100 MG TAB PO SCH (09:23)
--- NOTE | 2022-02-22 11:08 | Pain Management Progress Note ---
Date of Service February 22, 2022 Assessment & Plan (1) Delirium: (2) Lumbar post-laminectomy syndrome: (3) Presence of intrathecal pump: Plan 1. Patient indicating current poor pain control. It appears likely that the patient did experience opioid withdrawal and is currently experiencing moderate pain control with IV morphine. Due to her current intrathecal concentration, we are unable to safely further adjust her intrathecal dose at this time. Will obtain alternate concentration and refill the pump with dosage adjustment accordingly within the next 24-48 hours. 2. Will plan to increase her hydrocodone/acetaminophen to 1-2 tablets every 4-6 hours based on pain scales to assess efficacy/tolerability over the next 24 hours and adjust accordingly 3. Patient may reserve IV morphine for pain not well controlled with oral hydrocodone/acetaminophen 4. Ensure up-to-date Narcan prescription availability when discharge to home 5. Will continue to follow Admission and Anticipated Discharge Date Admission Date: February 18, 2022 Subjective Mrs. Tucker is currently POD #6 status post replacement of intrathecal morphine pain pump catheter due to suspected catheter malfunction. Patient's hospital course has been complicated by delirium, SVT, elevated troponin and fever. All of her cultures have returned negative to date with no evidence for active infection and fevers have resolved. Patient's intrathecal pump was placed and minimal rate last week currently on morphine 0.06 mg/day. Patient's mental status has returned to baseline. Patient has been reporting adequate pain control over the weekend but is reporting some increased pain over the past few hours which is in the axial lumbar spinal region. Her chronic pain complaint is typical for lower axial lumbar spine pain of chronic duration. Patient describes the pain as aching at this time and a 7-8/10. She is finding IV morphine to be effective at diminishing her pain for 2-3 hours without notable side effects. Patient reports that she has had bowel movement denies abdominal pain or bloating/fullness. Patient reports only minimal incisional site soreness in the left lower abdomen. Patient is eager to return home reporting that she feels her back pain would be more comfortable at home. Patient has no further concerns or complaints this time. Patient seen and examined along with Dr. Ana Paula Bruno. Pain Assessment Pain Assessment Full Body Front + Back: 1. Lumbar spine Pain scale - at its best (0-10): 4 Pain scale - at its worst (0-10): 8 Physical Exam Physical Exam: General: Patient lying quietly in exam room in no acute distress. Speech and thought process appropriate. Mood and affect appropriate. Cognition intact. Patient overweight and physically deconditioned. Abdomen: Soft and nondistended. No organomegaly. Bowel sounds active. Pump present in the left lower quadrant without evidence of edema, erythema or skin breakdown. Aquacel was removed for visual inspection and Prineo dressing came off as well. Incisional site is well approximated. 2 sites of tattooing related to her intrathecal pump. Steri-Strips were placed over the incisional site and Adaptic with a dry dressing and tape was placed. Back/spine: Complete loss of lumbar lordosis with multiple well-healed midline surgical incisions. Patient has generalized tenderness over the entire lumbosacral region which is nonfocal. Dressing was removed for visual inspection. The lower 1/2 inch of the incision is open but not draining. There is minimal erythema. The rest of the incisional site is well approximated. Steri-Strips were placed over the lower one half into the incisional site and a dry dressing was placed. Lower extremities: SLR negative bilaterally. Strength testing 5/5 and equal. Sensation intact without deficit. Neurologic: Cranial nerves grossly intact. Ambulatory function not witnessed.
[2022-02-22] MEDS ORDERED: VANCOMYCIN LEVEL ONE (11:30)
--- NOTE | 2022-02-22 21:17 | Hospitalist Progress Note ---
Date of Service February 22, 2022 Assessment & Plan (1) Delirium: Plan: Now resolved. Diet has been advanced. IV medications have been switched to oral route. Antibiotics and antivirals discontinued today, February 21 . Aferbile during day, will monitor fever curve on 02/22 ID consult placed, however if remains aferbile, will consider discharge in AM. will repeat procal in AM All cultures remain negative. CT scan of her head without evidence of intracranial issues . (2) SVT (supraventricular tachycardia): Plan: No recurrence. We will treat as needed. Continue telemetry. IV metoprolol has been switched back to oral dosing (3) Elevated troponin: Plan: No evidence of acute myocardial infarction. Continue telemetry. Will follow (4) Presence of intrathecal pump: Plan: Patient underwent surgery on 02/16/2022 with exploration of intrathecal catheter and spinal cord stimulator leads insertion of new intrathecal catheter. Encephalopathy etiology could be opiate withdrawal related. (5) Depression: Plan: Treated with venlafaxine (6) Takotsubo cardiomyopathy: Plan: Patient follows with [facility] cardiology for previous history of Takotsubo's cardiomyopathy. Patient's most recent echo in 2020 revealed a normal ejection fraction and no wall motion abnormalities Plan To be determined. OT and PT assessments requested Admission and Anticipated Discharge Date Admission Date: February 18, 2022 Subjective 81 yo female reports feeling well. she has no new complaints. Review of Systems Review of Systems: All systems reviewed & are unremarkable except as noted in HPI & below Physical Exam Physical Exam: General-alert and oriented x3, no fevers, no chills HEENT-head atraumatic and normocephalic, pupils equal and reactive to light, extraocular muscles intact Neck-no lymphadenopathy or thyromegaly, trachea midline Chest-clear to auscultation percussion. No rales wheezing or rhonchi Cardiac-regular rate and rhythm, normal S1 and S2, no murmurs Abdomen-normal bowel sounds, nontender, no hepatosplenomegaly Extremities-no cyanosis, clubbing, or edema Neuro-cranial nerves II through XII intact, motor and sensory function within normal limits, strength symmetrical , no focal deficits Psych-normal affect, normal mood Results & Data Results & Data ([facility]) Vital Signs (Past 12 Hours) Vital Signs Temp Pulse Resp BP Pulse Ox Pulse Ox O2 Del Method 02/22/22 21:04 95 02/22/22 19:39 37.9 C H 98 H 22 176/103 H 96 Room Air 02/22/22 15:00 36.8 C 74 16 182/105 H 97 02/22/22 11:00 36.9 C 74 18 159/71 H 98 O2 Del Method 02/22/22 21:04 Room Air 02/22/22 19:39 02/22/22 15:00 02/22/22 11:00 PG Care Time/CCT Total # of Minutes Spent Total Time Spent with Patient: Total time spent is greater than 50% in coordination of care (as documented) at patient's floor/unit and/or counseling patient: Coding Level of Care Code 61811 Subseq Hosp Care Lvl 3 Diagnoses Delirium R41.0 SVT (supraventricular tachycardia) I47.1 Elevated troponin R77.8 Presence of intrathecal pump Z97.8 Depression F32.9 Takotsubo cardiomyopathy I51.81 Time Spent (min) 35 Comment chart review
[2022-02-23] MEDS: diphenhydrAMINE Capsule 25 MG CAP PO PRN ×2 (00:20→21:57)
[2022-02-23] MEDS: HYDROCODONE/ACETAMOPHEN 5/325MG TAB PO PRN (02:21)
[2022-02-23] MEDS: hydrALAZINE HCL 20 MG/ML VIAL IV PRN (02:21)
[2022-02-23] MEDS: MoRPHine SULFATE 2 MG/ML CARP IV PRN ×4 (03:56→21:54)
[2022-02-23 06:29] LABS: Basophils # (auto) 0.05 K/uL (0-0.2); Basophils % (auto) 0.3 %; Eosinophils # (auto) 0.07 K/uL (0-0.50); Eosinophils % (auto) 0.4 %; Hematocrit (blood only) 44.2 % (34.1-44.9); Hemoglobin 15.4 g/dl (12.0-16.0); Immature Granulocytes % (auto) 0.5 %; Lymphocytes # (auto) 2.03 K/uL (1.2-3.4); Lymphocytes % (auto) 10.2 %; Mean Corpuscular Hemoglobin 29.3 pg (25.0-34.0); Mean Corpuscular Hgb Conc 34.8 g/dL (32.0-36.0); Mean Platelet Volume 10.5 fL (9.4-12.3); Monocytes # (auto) 1.61 K/uL (0.24-0.82); Monocytes % (auto) 8.1 %; Neutrophils # (auto) 16.08 K/uL (1.4-6.5); Neutrophils % (auto) 80.5 %; Platelet Count 337 K/uL (130-400); RDW Coefficient of Variation 12.6 % (11.5-14.5); RDW Standard Deviation 38.5 fL (36.4-46.3); Red Blood Count 5.26 M/uL (3.93-5.22); White Blood Count 19.94 K/ul (4.8-10.8)
[2022-02-23 07:04] LABS: Albumin Globulin Ratio 1.3 (0.9-2); Albumin Level 3.6 gm/dl (3.4-5.0); Bilirubin,Total 0.6 mg/dl (0.2-1.0); C Reactive Protein 3.04 mg/dl (0-0.5); Calcium 8.6 mg/dl (8.5-10.1); Creatinine Clr Calc Pharmacy 105.2 ml/min; Est GFR (African American) 115.5 ml/min; Est GFR (Non-African American) 99.6 ml/min; Globulin 2.7 gm/dl (2.5-4.0); Potassium 3.4 mmol/L (3.5-5.1); Total Protein 6.3 gm/dl (6.0-8.3)
--- NOTE | 2022-02-23 08:38 | Pain Management Progress Note ---
Date of Service February 23, 2022 Assessment & Plan (1) Delirium: (2) Lumbar post-laminectomy syndrome: (3) Presence of intrathecal pump: Plan 1. Patient indicating inadequate pain control. Will discontinue hydrocodone/acetaminophen and transition to MS IR 15 mg every 6 hours scheduled dosing. 2. Patient may reserve IV morphine for pain not well controlled with oral morphine 3. Ensure up-to-date Narcan prescription availability when discharge to home 4. Persistently elevated WBC count discussed with hospitalist. ID consult was placed yesterday. Will await recommendations prior to making decision regarding refilling of her intrathecal pump with new concentration of morphine. 5. We will again monitor her midline axial lumbar incisional site tomorrow. Will consider placing a staple to attempt better closure of the lower aspect of the incisional site tomorrow. Admission and Anticipated Discharge Date Admission Date: February 18, 2022 Subjective Mrs. Tucker is a 61-year-old white female POD #7 status post intrathecal pump catheter replacement due to catheter malfunction. Patient is reporting persisting axial low back pain is her primary pain complaint. She is rating her pain a 3-7/10. She continues to rely on IV morphine which is effective at diminishing her pain without notable side effects. She utilized 8 mg of IV morphine in the past 24 hours. She reports hydrocodone is minimally effective at diminishing her pain. She has been out of bed to the bathroom and is reporting normal bowel movements at this time without abdominal pain or constipation. She has incisional site soreness in the left lower quadrant at the pump site as well as the axial thoracolumbar spine. Patient denies fevers, chills or night sweats. She reports persisting difficulties with nausea. Patient feels that she is cognitively returned to normal at this time and reports no further constitutional complaints. Patient seen and examined along with Dr. Alcantar. Pain Assessment Pain Assessment Full Body Front + Back: 1. Axial lumbar spine Pain scale - at its best (0-10): 3 Pain scale - at its worst (0-10): 7 Physical Exam Physical Exam: General: Patient lying quietly in exam room in no acute distress. Speech and thought process appropriate. Mood and affect appropriate. Cognition intact. Patient overweight and physically deconditioned. Abdomen: Soft and nondistended. No organomegaly. Bowel sounds active. Pump present in the left lower quadrant without evidence of edema, erythema or skin breakdown. Dressing was again changed at today's visit. Steri-Strips remain in place. Wound is well approximated at this time. Dry dressing and tape was placed. Back/spine: Complete loss of lumbar lordosis with multiple well-healed midline surgical incisions. Patient has generalized tenderness over the entire lumbosacral region which is nonfocal. Dressing was removed for visual inspection. The distal/lower end of the incisional site remains gaped open. Steri-Strips were removed and replaced with Dermabond and attempt to improve closure. There is minimal erythema. The rest of the incisional site is well approximated. Adaptic dressing was applied with gauze overlying and tape. Lower extremities: SLR negative bilaterally. Strength testing 5/5 and equal. Sensation intact without deficit. Neurologic: Cranial nerves grossly intact. Ambulatory function not witnessed.
[2022-02-23] MEDS: POTASSIUM CHLORIDE CRTAB 20 MEQ TABCR PO SCH ×4 (08:44→20:10)
[2022-02-23] MEDS: DOCUSATE SODIUM 100 MG CAP PO SCH ×2 (08:44→20:10)
[2022-02-23] MEDS: POLYETHYLENE (MIRALAX) 17 GM PACK PO PRN (08:44)
[2022-02-23] MEDS: MoRPHine SULFATE IR 15 MG TAB (IMMEDIATE RELEASE) PO SCH ×3 (08:44→20:10)
[2022-02-23] MEDS: METOPROLOL SUCC 25MG EXT REL TAB PO SCH (08:44)
[2022-02-23] MEDS: VENLAFAXINE HCL XR 150 MG CAPXR PO SCH (08:45)
[2022-02-23] MEDS: THIAMINE HCL 100 MG TAB PO SCH (08:45)
[2022-02-23] MEDS: SODIUM CHLORIDE 0.9% 1000ML 1,000 ML IV SCH (11:37)
[2022-02-23] MEDS: ONDANSETRON INJ 2 MG/ML 2 ML VIAL IV PRN (13:06)
--- NOTE | 2022-02-23 13:48 | Hospitalist Progress Note ---
Date of Service February 23, 2022 Assessment & Plan (1) Delirium: Plan: Now resolved. IV medications have been switched to oral route. ID consult pending. All cultures remain negative. CT scan of her head without evidence of intracranial issues . (2) SVT (supraventricular tachycardia): Plan: No recurrence. We will treat as needed. Continue telemetry. IV metoprolol has been switched back to oral dosing (3) Elevated troponin: Plan: No evidence of acute myocardial infarction. Continue telemetry. Will follow (4) Presence of intrathecal pump: Plan: Patient underwent surgery on 02/16/2022 with exploration of intrathecal catheter and spinal cord stimulator leads insertion of new intrathecal catheter. Encephalopathy etiology could be opiate withdrawal related. (5) Depression: Plan: Treated with venlafaxine (6) Takotsubo cardiomyopathy: Plan: Patient follows with [facility] cardiology for previous history of Takotsubo's cardiomyopathy. Patient's most recent echo in 2020 revealed a normal ejection fraction and no wall motion abnormalities (7) Abdominal discomfort in right upper quadrant: Plan: She has nausea and right upper quadrant discomfort with poor oral intake. She is tender on examination in the right upper quadrant area. Gallbladder studies are pending. Clear liquids for now. Start IV fluids and IV Mefoxin, day 1 Plan To be determined. OT and PT assessments requested Admission and Anticipated Discharge Date Admission Date: February 18, 2022 Subjective The patient does not feel well. She has nausea and poor oral intake. She is tender in the right upper quadrant on abdominal exam. White blood cell count remains elevated. This raises the question of underlying gallbladder disease. Gallbladder ultrasound and HIDA scan ordered. Will start IV fluids and also intravenous Mefoxin. Clear liquid diet for now. ID consult is pending. Review of Systems Review of Systems: Constitutional-no fever or chills ENT-no blurred vision, no double vision, no epistaxis, no sore throat Respiratory-no cough, no wheezing, no shortness of breath Cardiac-no palpitations, no chest pain, no syncope GI-nauseated with poor oral intake. Right upper quadrant tenderness on examination -no urinary retention, no urinary incontinence, no dysuria, no hematuria Musculoskeletal-no joint pain, no muscle tenderness Skin-no bruising, no rashes, no pruritus Neuro-no isolated weakness, no paresthesia, no weakness Psych-no depression, no anxiety Physical Exam Physical Exam: General-alert and oriented x3, no fevers, no chills HEENT-head atraumatic and normocephalic, TMs intact bilaterally, pupils equal and reactive to light, extraocular muscles intact Neck-no lymphadenopathy or thyromegaly, trachea midline Chest-clear to auscultation percussion. No rales wheezing or rhonchi Cardiac-regular rate and rhythm, normal S1 and S2, no murmurs Abdomen- tender right upper quadrant area. No rebound or guarding. Bowel sounds are active. Extremities-no cyanosis, clubbing, or edema Neuro-cranial nerves II through XII intact, motor and sensory function within normal limits, strength symmetrical , no focal deficits Psych-normal affect, normal mood Results & Data Results & Data ([facility]) Vital Signs (Past 12 Hours) Vital Signs Temp Pulse Resp BP BP Pulse Ox O2 Del Method 02/23/22 11:36 37.4 C 99 H 18 121/69 97 Room Air 02/23/22 08:00 36.6 C 93 H 16 109/62 97 Room Air 02/23/22 07:57 36.9 C 103 H 19 135/76 95 Room Air 02/23/22 03:00 115/58 L 02/23/22 02:15 37.1 C 84 12 173/105 H 97 Room Air Laboratory Results 02/23/22 06:01 02/23/22 06:01 PG Care Time/CCT Total # of Minutes Spent Total Time Spent with Patient: Total time spent is greater than 50% in coordination of care (as documented) at patient's floor/unit and/or counseling patient: Coding Level of Care Code 48416 Subseq Hosp Care Lvl 3 Diagnoses Delirium R41.0 SVT (supraventricular tachycardia) I47.1 Elevated troponin R77.8 Presence of intrathecal pump Z97.8 Depression F32.9 Takotsubo cardiomyopathy I51.81 Abdominal discomfort in right upper quadrant R10.11
--- NOTE | 2022-02-23 14:01 | Ultrasound Report ---
US gallbladder HISTORY: 61 years-old Female nausea, RUQ tendernes acute right upper quadrant abdominal pain COMPARISON: CT thoracic 11/26/2021 TECHNIQUE: Multiple real-time sonographic images of the abdominal right upper quadrant were obtained assessing grayscale appearance and color flow FINDINGS: The pancreas is mostly obscured by bowel gas. The liver measures 13.6 cm in length and demonstrates i ncreased echogenicity with heterogeneity. No hepatic mass identified. Mildly distended gallbladder. No cholelithiasis, wall thickening or pericholecystic fluid. Normal com mon bile duct, 5 mm. The imaged right kidney is unremarkable without hydronephrosis. IMPRESSION: 1. Limited exam secondary to patient body habitus. 2. Mild gallbladder distention without cholelithiasis, wall thickening or pericholecystic fluid ident ified. 3. Geographic hepatic steatosis. 4. No biliary ductal dilation. ACT 112: Negative or not required by law. The above report was generated using voice recognition software. It may contain grammatical, syntax o r spelling errors. Electronically signed by: Abebe Arriaga M.D. 02/23/2022 2:00 PM
[2022-02-24] MEDS: SODIUM CHLORIDE 0.9% 1000ML 1,000 ML IV SCH ×2 (02:08→17:47)
[2022-02-24] MEDS: MoRPHine SULFATE IR 15 MG TAB (IMMEDIATE RELEASE) PO SCH ×5 (02:09→19:14)
[2022-02-24 07:31] LABS: BUN Creatinine Ratio 19.2 (10-20); Calcium 8.5 mg/dl (8.5-10.1); Creatinine Clr Calc Pharmacy 84.5 ml/min; Est GFR (African American) 103.8 ml/min; Est GFR (Non-African American) 89.5 ml/min; Potassium 4.3 mmol/L (3.5-5.1)
[2022-02-24] MEDS: POTASSIUM CHLORIDE CRTAB 20 MEQ TABCR PO SCH ×3 (07:34→20:59)
[2022-02-24] MEDS: DOCUSATE SODIUM 100 MG CAP PO SCH ×2 (07:35→20:59)
[2022-02-24] MEDS: METOPROLOL SUCC 25MG EXT REL TAB PO SCH (07:35)
[2022-02-24] MEDS: THIAMINE HCL 100 MG TAB PO SCH (07:35)
[2022-02-24] MEDS: VENLAFAXINE HCL XR 150 MG CAPXR PO SCH (07:35)
[2022-02-24 09:02] LABS: Basophils # (auto) 0.05 K/uL (0-0.2); Basophils % (auto) 0.3 %; Eosinophils # (auto) 0.27 K/uL (0-0.50); Eosinophils % (auto) 1.8 %; Hematocrit (blood only) 42.1 % (34.1-44.9); Hemoglobin 13.9 g/dl (12.0-16.0); Immature Granulocytes # (auto) 0.09 K/uL (0.00-0.02); Immature Granulocytes % (auto) 0.6 %; Lymphocytes # (auto) 1.99 K/uL (1.2-3.4); Lymphocytes % (auto) 13.1 %; Mean Corpuscular Hemoglobin 29.2 pg (25.0-34.0); Mean Corpuscular Volume 88.4 fL (80.0-100.0); Mean Platelet Volume 10.4 fL (9.4-12.3); Monocytes # (auto) 0.99 K/uL (0.24-0.82); Monocytes % (auto) 6.5 %; Neutrophils # (auto) 11.78 K/uL (1.4-6.5); Neutrophils % (auto) 77.7 %; Platelet Count 302 K/uL (130-400); RDW Coefficient of Variation 13.2 % (11.5-14.5); RDW Standard Deviation 41.9 fL (36.4-46.3); Red Blood Count 4.76 M/uL (3.93-5.22); White Blood Count 15.17 K/ul (4.8-10.8)
--- NOTE | 2022-02-24 09:04 | Pain Management Progress Note ---
Date of Service February 24, 2022 Assessment & Plan (1) Lumbar post-laminectomy syndrome: (2) Presence of intrathecal pump: Plan 1. Will continue with MS IR 15 mg scheduled dosing adjusted to q5h 2. Patient may reserve IV morphine for pain not well controlled with oral morphine 3. Ensure up-to-date Narcan prescription availability when discharge to home 4. No plans to refill intrathecal pump or adjust dose pending outcome of further evaluation/treatment of elevated WBC count and upcoming HIDA scan. 5. Will continue to monitor incisional site daily. Admission and Anticipated Discharge Date Admission Date: February 18, 2022 Subjective Mrs. Tucker is a 61-year-old white female POD #8 status post intrathecal catheter replacement due to catheter malfunction. Patient is reporting persisting axial low back pain is her primary pain complaint. Patient is reporting improved pain control with MS IR 15 mg scheduled every 6 hours. She reports this is adequately reducing her pain but not lasting the full 6-hour interval. She has relied on less IV morphine over the past 24 hours with initiation of the MS IR. She is rating her pain a 3-7/10. Patient is reporting diminished nausea since yesterday. She did undergo gallbladder evaluation yesterday which failed to reveal evidence of cholecystitis. Patient is scheduled for HIDA scan later to ay. She did undergo infectious disease telehealth consultation yesterday who recommended against antibiotic therapy. She was given IV antibiotic therapy yesterday by hospitalist service. She has been out of bed to the bathroom and is reporting normal bowel movements at this time without abdominal pain or constipation. She has incisional site soreness in the left lower quadrant at the pump site as well as the axial thoracolumbar spine. Patient denies fevers, chills or night sweats. Plan of care discussed with Dr. Alcantar. Pain Assessment Pain Assessment Full Body Front + Back: 1. Axial lumbar spine Pain scale - at its best (0-10): 3 Pain scale - at its worst (0-10): 7 Physical Exam Physical Exam: General: Patient lying quietly in exam room in no acute distress. Speech and thought process appropriate. Mood and affect appropriate. Cognition intact. Patient overweight and physically deconditioned. Abdomen: Soft and nondistended. No organomegaly. Bowel sounds active. Pump present in the left lower quadrant without evidence of edema, erythema or skin breakdown. Dressing was again changed at today's visit. Steri-Strips remain in place. Wound is well approximated at this time. Dry dressing and tape was placed. Back/spine: Complete loss of lumbar lordosis with multiple well-healed midline surgical incisions. Patient has generalized tenderness over the entire lumbosacral region which is nonfocal. Dressing was removed for visual inspec tion. The distal/lower end of the incision approximately 1/2 inch was closed with Dermabond and Steri-Strips yesterday. This appears to be approximating the wound adequately without discharge. Steri-Strips were left in place and dressed with Adaptic and gauze/tape to secure. The rest of the incisional site is well approximated. Lower extremities: SLR negative bilaterally. Strength testing 5/5 and equal. Sensation intact without deficit. Neurologic: Cranial nerves grossly intact. Ambulatory function not witnessed.
--- NOTE | 2022-02-24 11:57 | Hospitalist Progress Note ---
Date of Service February 24, 2022 Assessment & Plan (1) Delirium: Plan: Resolved (2) SVT (supraventricular tachycardia): Plan: Occurred only once. Continue telemetry. Continue current medical management (3) Elevated troponin: Plan: No evidence of acute CO. Telemetry. (4) Presence of intrathecal pump: Plan: Chronic pain management consultation appreciated. (5) Depression: Plan: Medication management (6) Takotsubo cardiomyopathy: Plan: Past history of Takotsubo cardiomyopathy. Currently asymptomatic in this respect. Telemetry. (7) Abdominal discomfort in right upper quadrant: Plan: Gallbladder ultrasound is unremarkable. HIDA scan today, February 24. Continue Mefoxin for now, day 2. Clear liquids only. Continue IV fluids. ID consultation appreciated Plan Anticipate eventual discharge to home Admission and Anticipated Discharge Date Admission Date: February 18, 2022 Subjective Alert and oriented. No significant change in physical status. She still has some nausea and right upper quadrant pain. Gallbladder ultrasound was not remarkable. HIDA scan is pending. She remains on intravenous fluids and clear liquids. She also remains on intravenous Mefoxin, day 2. White blood cell count has down trended to 15,000. Mild hypokalemia corrected to 4.3. Infec tious disease entry noted Review of Systems Review of Systems: Constitutional-no fever or chills ENT-no blurred vision, no double vision, no epistaxis, no sore throat Respiratory-no cough, no wheezing, no shortness of breath Cardiac-no palpitations, no chest pain, no syncope GI-persistent nausea. No vomiting, diarrhea, melena, hematochezia -no urinary retention, no urinary incontinence, no dysuria, no hematuria Musculoskeletal-no joint pain, no muscle tenderness Skin-no bruising, no rashes, no pruritus Neuro-no isolated weakness, no paresthesia, no weakness Psych-no depression, no anxiety Physical Exam Physical Exam: General-alert and oriented x3, no fevers, no chills HEENT-head atraumatic and normocephalic, pupils equal and reactive to light, extraocular muscles intact Neck-no lymphadenopathy or thyromegaly, trachea midline Chest-clear to auscultation percussion. No rales wheezing or rhonchi Cardiac-regular rate and rhythm, normal S1 and S2, no murmurs Abdomen-normal bowel sounds. Tenderness in the right upper quadrant but no overt rebound or guarding. y Extremities-no cyanosis, clubbing, or edema Neuro-cranial nerves II through XII intact, motor and sensory function within normal limits, strength symmetrical , no focal deficits Psych-normal affect, normal mood Results & Data Results & Data ([facility]) Vital Signs (Past 12 Hours) Vital Signs Temp Pulse Pulse Resp BP Pulse Ox O2 Del Method 02/24/22 11:17 36.9 C 87 18 146/80 H 95 Room Air 02/24/22 08:00 78 02/24/22 07:03 36.9 C 85 18 155/90 H 95 Room Air 02/24/22 03:00 36.6 C 83 18 129/71 92 Room Air Laboratory Results 02/24/22 06:20 02/24/22 06:20 PG Care Time/CCT Total # of Minutes Spent Total Time Spent with Patient: Total time spent is greater than 50% in coordination of care (as documented) at patient's floor/unit and/or counseling patient: Coding Level of Care Code 47418 Subseq Hosp Care Lvl 3 Diagnoses Delirium R41.0 SVT (supraventricular tachycardia) I47.1 Elevated troponin R77.8 Presence of intrathecal pump Z97.8 Depression F32.9 Takotsubo cardiomyopathy I51.81 Abdominal discomfort in right upper quadrant R10.11
--- NOTE | 2022-02-24 14:19 | Nuclear Medicine Report ---
NUCLEAR MEDICINE HEPATOBILIARY SCAN CLINICAL HISTORY: Right upper quadrant pain. COMPARISON: Right upper quadrant ultrasound February 23, 2022. TECHNIQUE: 5.2 mCi of technetium 99m Choletec IV was injected at 1:09 PM on February 24, 2022. Imm ediately following injection, imaging of the abdomen was carried out for 60 minutes in the anterior p rojection. FINDINGS: Hepatic uptake of radiotracer is prompt and homogeneous. Activity is identified within the common bile duct at 10 minutes. Gallbladder activity is noted at 20 minutes. Small bowel activity is noted 15 minutes. IMPRESSION: Normal hepatobiliary study. No evidence for acute cholecystitis. ACT 112: Negative or not required by law. Electronically signed by: Blayne David M.D. 02/24/2022 2:18 PM
[2022-02-24] MEDS: diphenhydrAMINE Capsule 25 MG CAP PO PRN (20:59)
[2022-02-25] MEDS: MoRPHine SULFATE 2 MG/ML CARP IV PRN ×2 (00:47→14:26)
[2022-02-25] MEDS: MoRPHine SULFATE IR 15 MG TAB (IMMEDIATE RELEASE) PO SCH ×4 (05:48→13:39)
[2022-02-25 06:32] LABS: BUN Creatinine Ratio 14.9 (10-20); Blood Urea Nitrogen 11 mg/dl (6-23); Carbon Dioxide 25 mmol/L (21-32); Chloride 103 mmol/L (98-107); Creatinine Clr Calc Pharmacy 81.9 ml/min; Est GFR (African American) 102.1 ml/min; Est GFR (Non-African American) 88.1 ml/min; Glucose 107 mg/dl (70-99(Fasting))
[2022-02-25 07:15] LABS: Basophils # (auto) 0.04 K/uL (0-0.2); Basophils % (auto) 0.3 %; Eosinophils # (auto) 0.47 K/uL (0-0.50); Eosinophils % (auto) 3.5 %; Hematocrit (blood only) 41.2 % (34.1-44.9); Hemoglobin 13.5 g/dl (12.0-16.0); Immature Granulocytes % (auto) 0.7 %; Lymphocytes # (auto) 1.49 K/uL (1.2-3.4); Mean Corpuscular Hemoglobin 29.4 pg (25.0-34.0); Mean Corpuscular Hgb Conc 32.8 g/dL (32.0-36.0); Mean Corpuscular Volume 89.8 fL (80.0-100.0); Mean Platelet Volume 10.2 fL (9.4-12.3); Monocytes # (auto) 0.93 K/uL (0.24-0.82); Monocytes % (auto) 6.9 %; Neutrophils # (auto) 10.46 K/uL (1.4-6.5); Neutrophils % (auto) 77.6 %; Platelet Count 282 K/uL (130-400); RDW Coefficient of Variation 13.3 % (11.5-14.5); RDW Standard Deviation 43.2 fL (36.4-46.3); Red Blood Count 4.59 M/uL (3.93-5.22); White Blood Count 13.49 K/ul (4.8-10.8)
[2022-02-25 07:27] LABS: Potassium 4.3 mmol/L (3.5-5.1)
--- NOTE | 2022-02-25 08:48 | Pain Management Progress Note ---
Date of Service February 25, 2022 Assessment & Plan (1) Lumbar post-laminectomy syndrome: (2) Presence of intrathecal pump: Plan 1. Will continue with MS IR 15 mg scheduled dosing adjusted to q4h 2. Patient may reserve IV morphine for pain not well controlled with oral morphine 3. Ensure up-to-date Narcan prescription availability when discharge to home 4. No plans to refill intrathecal pump or adjust dose pending outcome of further evaluation/treatment of elevated WBC count. 5. Aquacel dressings to remain in place in left lower quadrant and midline of thoracolumbar spine pending her follow-up in pain clinic which is currently scheduled for 03/08/2022 Admission and Anticipated Discharge Date Admission Date: February 18, 2022 Subjective Mrs. Tucker is a 61-year-old white female POD #9 status post intrathecal catheter replacement due to catheter malfunction. Patient is reporting persisting axial low back pain as her primary pain complaint, but is improved over the past 24 hours as she has only utilized a single 2 mg dose of IV morphine. She does report poor sleep quality last evening due to her axial low back pain and an inability to "get comfortable". Patient is reporting improved pain control with MS IR 15 mg scheduled every 5 hour yesterday but reports that the benefit is lasting 3-4 hours only. She is rating her pain a 5/10 today. Patient is reporting no nausea today and has improved appetite. She did undergo further gallbladder evaluation yesterday with HIDA scan which failed to reveal evidence of cholecystitis. She has been out of bed to the bathroom and is reporting normal bowel movements at this time without abdominal pain or constipation. She has minimal incisional site soreness at this time. Patient denies fevers, chills or night sweats. Plan of care discussed with Dr. Alcantar. Physical Exam Physical Exam: General: Patient sitting up eating breakfast upon entering the room in no acute distress. Speech and thought process appropriate. Mood and affect appropriate. Cognition intact. Patient overweight and physically deconditioned. Patient able to lie down and roll on her left side for physical exam without complication or obvious pain. Abdomen: Soft and nondistended. No organomegaly. Bowel sounds active. Pump present in the left lower quadrant without evidence of edema, erythema or skin breakdown. Dressing was again changed at today's visit. Steri-Strips remain in place. Wound is well approximated at this time. Aquacel dressing was placed at today's visit which will remain in place pending her follow-up visit in pain clinic in 7-10 days which will be scheduled. Back/spine: Complete loss of lumbar lordosis with multiple well-healed midline surgical incisions. Patient has some generalized tenderness over the entire lumbosacral region which is nonfocal. Dressing was removed for visual inspection. The distal/lower end of the incision approximately 1/2 inch was closed with Dermabond and Steri-Strips 2 days ago with single Steri-Strip remaining in place only. The wound does appear to have improved approximation without erythema or discharge present. Single Steri-Strips was left in place. At this time an Aquacel dressing was placed over the entire wound which will remain in place pending her follow-up visit in pain clinic in 7-10 days. The rest of the incisional site is well approximated. Lower extremities: SLR negative bilaterally. Strength testing 5/5 and equal. Sensation intact without deficit. Neurologic: Cranial nerves grossly intact. Ambulatory function not witnessed.
[2022-02-25] MEDS: VENLAFAXINE HCL XR 150 MG CAPXR PO SCH (09:30)
[2022-02-25] MEDS: METOPROLOL SUCC 25MG EXT REL TAB PO SCH (09:30)
[2022-02-25] MEDS: THIAMINE HCL 100 MG TAB PO SCH (09:30)
[2022-02-25] MEDS: POTASSIUM CHLORIDE CRTAB 20 MEQ TABCR PO SCH ×2 (09:30→13:39)
[2022-02-25] MEDS: DOCUSATE SODIUM 100 MG CAP PO SCH (09:30)
[2022-02-25] MEDS: ONDANSETRON INJ 2 MG/ML 2 ML VIAL IV PRN (14:27)
--- NOTE | 2022-02-25 15:03 | Discharge Summary ---
Date of Service February 25, 2022 Admission HPI Per Admitting Provider Mrs. Tucker is a 61-year-old white female who is well-known to the [facility] pain service with a history of chronic intractable low back pain secondary to lumbar postlaminectomy syndrome which has required implantation of intrathecal pump and catheter delivery system. The patient has been utilizing intrathecal opiate therapy for many years but complaining of inadequate pain control over the past 6-12 months. Patient describes her pain as aching, occasionally sharp with spasming and numbness, with tingling and shooting pains in the lower extremities in nondermatomal patterns. Her predominant pain generator remains right greater than left lumbosacral pain and gluteal region pain extending to the right lateral hip and thigh region. Patient rates her pain a 4/10 at its best and 9/10 at its worst. She reports more good days than bad days with regards to pain control. She reports limited ability to perform ambulatory and ADL activities due to her pain and discomfort. Patient has un dergone extensive evaluation of her intrathecal pump with catheter access port study with inability to aspirate so catheter dye study was not completed. CT scan of the thoracolumbar spine was then completed which failed to reveal evidence of a definitive fracture of the catheter. Treatment options have been discussed at length and ultimately decided to explore her catheter for suspected malfunction of the catheter contributing to her poor pain control. Principal Diagnosis delirium Discharge Data Allergies Allergy/AdvReac Type Severity Reaction Status Date / Time latex Allergy Unknown HIVES Verified 02/16/22 06:18 meperidine [From Demerol] AdvReac Unknown Nausea Verified 02/16/22 06:18 Consultations 02/19/22 06:59 Consult Cardiology Routine 02/21/22 12:12 Consult Pain Management Routine 02/22/22 13:51 Consult Infectious Diseases Routine Procedures Performed Operation Date: 02/16/22 07:30 Actual Procedures p Exploration of Intrathecal Catheter and Spinal Cord Stimulator leads, Insertion of New Intrathecal Catheter, Reprogram and Refill of Intrathecal Pump - Luis F Alcantar MD, [facility] Operation Date: 02/19/22 11:30 <No data on this case meets the specified criteria> Ordered Studies 02/16/22 07:30 FL fluoro for pain procedure Routine 02/18/22 11:32 CT head/brain wo con Routine 02/19/22 10:10 FL lumbar puncture diagnostic Routine 02/23/22 09:52 US gallbladder Urgent Hospital Course (1) Delirium: Resolved (2) SVT (supraventricular tachycardia): Occurred only once. Continue telemetry. Continue current medical management (3) Elevated troponin: No evidence of acute IL. Telemetry. (4) Presence of intrathecal pump: Chronic pain management consultation appreciated. (5) Depression: Medication management (6) Takotsubo cardiomyopathy: Past history of Takotsubo cardiomyopathy. Currently asymptomatic in this respect. Telemetry. (7) Abdominal discomfort in right upper quadrant: Gallbladder ultrasound is unremarkable. HIDA scan today, February 24. Continue Mefoxin for now, day 2. Clear liquids only. Continue IV fluids. ID consultation appreciated Plan Anticipate eventual discharge to home Total Time Total Time Spent Total Time Spent (In Minutes): 35 Discharge Plan Discharge Items Patient Disposition: Home - Self-Care Reason For Visit: Malfunction of Intrathecal Catheter, Lumbar Post L Discharge Diagnosis: Lumbar Post Laminectomy Syndrome Condition on Discharge: Good Activity: Per Instructions section Lifting: No more than 10 pounds Bathing: May shower/bathe in 3 days Non-emergency contact: Pain Management Call non-emergency contact if: your pain is unusual for you, you have a fever, your wound has increased redness, your wound has increased drainage and your wound pain has increased Follow-up/Referrals: Serge Frazier M.D. [Primary Care Provider] - 03/01/22 8:30 am (Your Appointment is at the [facility] Location * with Dr. Frazier) Diet: Regular Addtl Attending Provider Instructions: Wear abdominal binder / x 4 weeks. Do not change dressings until instructed. Follow up for wound check on 02/24/22 at 11AM. Pending Studies at Discharge: No Stand-Alone Forms: My [facility] Medications and DC Order Prescriptions: Continued lorazepam [Ativan] 1 mg tablet 1 mg PO DAILY PRN (Reason: Anxiety) calcium polycarbophil [FiberCon] 625 mg tablet 1,250 mg PO BID methylphenidate HCl [Metadate ER] 20 mg tablet extended release 20 mg PO QAM metoprolol succinate [Toprol XL] 25 mg tablet extended release 24 hr 25 mg PO QAM venlafaxine [Effexor XR] 150 mg capsule,extended release 24hr 150 mg PO QAM bupropion HCl 150 mg tablet extended release 24 hr 150 mg PO QAM methylphenidate HCl 5 mg tablet 5 mg PO UD Rx Instructions: tahes between 8-10 am armodafinil [Nuvigil] 250 mg tablet 250 mg PO QAM naloxone [Narcan] 4 mg/actuation spray,non-aerosol 4 mg intranasal Q2M PRN (Reason: opioid overdose) Qty: 2 0RF Rx Instructions: spray 1 dose into 1 nostril; alternate nostrils w/each dose until help arrives morphine 15 mg tablet 15 mg PO Q6H PRN (Reason: pain) Qty: 60 0RF calcium 100 mg Capsule 100 mg PO QAM albuterol sulfate 90 mcg/actuation HFA aerosol inhaler 90 mcg INHALATION QID PRN (Reason: Shortness Of Breath Or Wheezing) Discharge Orders: Discharge Order (Routine); Ordered 02/25/22 Ordered By: Obi Meza Admission Data Admit Date/Time: 02/18/22 11:31 Attending Provider: Obi Meza Admit Provider: Luis F Alcantar Primary Care Provider: Serge Frazier Other Providers: Haroon Allan ; Luis F Alcantar ; Bishop Faustin ; Ramiro Esparza ; Ceasar Mitchell I. ; Jeremy Ortiz II ; Trudy Goyal ; Hernandez Villatoro ; Amrik Cabezas ; Faith Stephens Other Interventions: Discharge Summary Assessment (RN) Last Done: 02/25/22 13:06 Coding Level of Care Code D/C DAY MANAGEMENT >30 MINS Diagnoses Delirium R41.0 SVT (supraventricular tachycardia) I47.1 Elevated troponin R77.8 Presence of intrathecal pump Z97.8 Depression F32.9 Takotsubo cardiomyopathy I51.81 Abdominal discomfort in right upper quadrant R10.11 Time Spent (min) 35
--- NOTE | 2022-03-08 11:27 | Coding Query ---
To promote full compliance with coding requirements relating to patient care, provider participation is requested in all cases of neon technician uncertainty. Please assist us with the question(s) below: Coding Question(s): The diagnosis(es) below was documented in the earlier record, then subsequently fell off all further documentation. Please indicate if it is still a possible diagnosis or ruled out. The patient was admitted as Inpatient on 02/18/22. Physician's Response(s): POSSIBLE BACTERIAL MENINGITIS (documentation begins on Communication Note on 02/19/22 and in a few PN's and drops off without being specified as ruled-out or still possible) ( ) Diagnosed and POA ( ) Diagnosed and not POA ( x ) Ruled out ( ) Other (please specify) ) MTDD
== END 2022-02-25 14:48 | disposition home or self-care (01) | DRG 92 ==
LOC: 4W 05:39 → ASU 05:39 → SUATTDRO 11:19 → 2E 02-18 11:43
DX: Z91.040 Latex allergy status; Z87.891 Personal history of nicotine dependence; Z96.82 Presence of neurostimulator; T85.615A Breakdown (mechanical) of other nervous system device, implant or graft, initial encounter; Z98.1 Arthrodesis status; I47.1 Supraventricular tachycardia; Y83.8 Other surgical procedures as the cause of abnormal reaction of the patient, or of later complication, without mention of misadventure at the time of the procedure; Z79.899 Other long term (current) drug therapy; R10.13 Epigastric pain; Y83.1 Surgical operation with implant of artificial internal device as the cause of abnormal reaction of the patient, or of later complication, without mention of misadventure at the time of the procedure; Z79.891 Long term (current) use of opiate analgesic; J45.909 Unspecified asthma, uncomplicated; Z88.5 Allergy status to narcotic agent; F32.A Depression, unspecified; E87.6 Hypokalemia; Z91.030 Bee allergy status; M96.1 Postlaminectomy syndrome, not elsewhere classified; Z86.79 Personal history of other diseases of the circulatory system; I16.0 Hypertensive urgency; G93.49 Other encephalopathy; M54.16 Radiculopathy, lumbar region; F41.9 Anxiety disorder, unspecified; M54.59 Other low back pain; F11.23 Opioid dependence with withdrawal; R79.89 Other specified abnormal findings of blood chemistry; R50.9 Fever, unspecified; G47.39 Other sleep apnea